=== PATIENT | male | born 1985 | race African-American/Black ===

== ENCOUNTER 2016-08-03 00:38 | Emergency (ER) | payer OTHER ==
[2016-08-03 01:10] VITALS: BP 120/66; PULSE 76; TEMP 97.8; BMI 24.7
--- NOTE | 2016-08-03 01:54 | PDOC ---
History of Present Illness - General Chief Complaint: Cold Symptoms Stated Complaint: FEVER/CHILLS Time Seen by Provider: 08/03/16 01:05 History Source: Patient Exam Limitations: No Limitations - History of Present Illness Initial Comments: 08/03/16 02:58 30-year-old male with a history of HIV and asthma presents to the emergency department complaining of an intermittent nonproductive cough 6 hours without fever, chills, nausea/vomiting, rhinorrhea, facial pain, headache, dizziness, lightheadedness, neck pains, back pains, chest pain, shortness of breath, abdominal pains. Patient's CD4 count is 500 and viral load is undetectable times one week ago. Timing/Duration: reports: yesterday Severity: reports: mild Possible Cause: Yes: no prior episodes Modifying Factors: improves with: activity Past History - Past Medical History Allergies/Adverse Reactions: Allergies Allergy/AdvReac Type Severity Reaction Status Date / Time sulfamethoxazole Allergy Verified 08/03/16 01:02 [From Bactrim] trimethoprim [From Bactrim] Allergy Verified 08/03/16 01:02 Home Medications: Ambulatory Orders Azithromycin [Zithromax -] 250 mg PO UTDICT #6 tab 08/03/16 Norvir 0 mg DAILY 08/03/16 Prezista - 0 mg DAILY 08/03/16 Truvada - 0 mg DAILY 08/03/16 - Psycho/Social/Smoking Cessation Hx Suicidal Ideation: No Smoking History: Never smoked Have you smoked in the past 12 months: No Information on smoking cessation initiated: No Hx Alcohol Use: No Drug/Substance Use Hx: No Review of Systems - Review of Systems Able to Perform ROS?: Yes Comments:: 08/03/16 03:00 CONSTITUTIONAL: Absent: fever, chills, diaphoresis, generalized weakness, malaise, loss of appetite HEENT: Absent: rhinorrhea, nasal congestion, throat pain, throat swelling, difficulty swallowing, mouth swelling, ear pain, eye pain, visual Changes CARDIOVASCULAR: Absent: chest pain, loss of consciousness, palpitations, irregular heart rate, peripheral edema RESPIRATORY: Absent: cough, shortness of breath, dyspnea with exertion, orthopnea, wheezing, stridor, hemoptysis GASTROINTESTINAL: Absent: abdominal pain, abdominal distension, nausea, vomiting, diarrhea, constipation, melena, hematochezia GENITOURINARY: Absent: dysuria, frequency, urgency, hesitancy, hematuria, flank pain, genital pain MUSCULOSKELETAL: Absent: myalgia, arthralgia, joint swelling SKIN: Absent: rash, itching, pallor HEMATOLOGIC/IMMUNOLOGIC: Absent: easy bleeding, easy bruising, lymphadenopathy, frequent infections ENDOCRINE: Absent: unexplained weight gain, unexplained weight loss, heat intolerance, cold intolerance NEUROLOGIC: Absent: headache, focal weakness or paresthesias, dizziness, unsteady gait, seizure, mental status changes, bladder or bowel incontinence PSYCHIATRIC: Absent: anxiety, depression, suicidal or homicidal ideation, hallucinations. Is the patient limited Portuguese proficient: No *Physical Exam - Vital Signs Last Vital Signs Temp Pulse Resp BP Pulse Ox 97.8 F 76 18 120/66 98 08/03/16 01:02 08/03/16 01:02 08/03/16 01:02 08/03/16 01:02 08/03/16 01:02 - Physical Exam Comments: 08/03/16 03:01 GENERAL: Well developed, well nourished. Awake and alert. No acute distress. HEENT: Normocephalic, atraumatic. PERRLA, EOMI. No conjunctival pallor. Sclera are non- icteric. Moist mucous membranes. Oropharynx is clear. NECK: Supple. Full ROM. No JVD. Carotid pulses 2+ and symmetric, without bruits. No thyromegaly. No lymphadenopathy. CARDIOVASCULAR: Regular rate and rhythm. No murmurs, rubs, or gallops. Distal pulses are 2+ and symmetric. PULMONARY: No evidence of respiratory distress. Lungs clear to auscultation bilaterally. No wheezing, rales or rhonchi. ABDOMINAL: Soft. Non-tender. Non-distended. No rebound or guarding. No organomegaly. Normoactive bowel sounds. MUSCULOSKELETAL Normal range of motion at all joints. No bony deformities or tenderness. No CVA tenderness. EXTREMITIES: No cyanosis. No clubbing. No edema. No calf tenderness. SKIN: Warm and dry. Normal capillary refill. No rashes. No jaundice. NEUROLOGICAL: Alert, awake, appropriate. Cranial nerves 2-12 intact. No deficits to light touch and temperature in face, upper extremities and lower extremities. No motor deficits in the in face, upper extremities and lower extremities. Normoreflexic in the upper and lower extremities. Normal speech. Toes are down- going bilaterally. Gait is normal without ataxia. PSYCHIATRIC: Cooperative. Good eye contact. Appropriate mood and affect. *DC/Admit/Observation/Transfer Diagnosis at time of Disposition: Bronchitis - Discharge Dispostion Disposition: HOME Admit: No - Prescriptions Prescriptions: Azithromycin [Zithromax -] 250 mg PO UTDICT #6 tab - Patient Instructions Printed Discharge Instructions: DI for Viral Upper Respiratory Infection -- Adult Additional Instructions: Rest Increase fluids Tylenol/motrin as needed for pain/fever Return to the ER for severe/persistent/worsening symptoms
== END 2016-08-03 03:24 | disposition home or self-care (01) ==
LOC: JER 00:38
DX: J40 Bronchitis, not specified as acute or chronic (principal); Z21 Asymptomatic human immunodeficiency virus [HIV] infection status
CPT/HCPCS: 71020-TC; 99282-25

== ENCOUNTER 2016-11-12 16:59 | Inpatient (IN) | payer OTHER ==
[2016-11-12 17:07] VITALS: BP 106/57; PULSE 116; TEMP 101.3; BMI 23.3
[2016-11-12] MEDS ORDERED: ACETAMINOPHEN 650 MG/20.3 ML ORAL SOLUTION (CUPS) PO ONE (17:09)
[2016-11-12] MEDS ORDERED: SODIUM CHLORIDE 1,000 ML IV STA (17:16)
[2016-11-12] MEDS ORDERED: ACETAMINOPHEN 1000 MG/100 ML VIAL (NON FORMULARY) IVPB ONE (17:17)
[2016-11-12 17:55] LABS: BASOPHIL 0.4 % (0-2.0); EOSINOPHIL 0.1 % (0-4.5); MCH 26.7 pg (25.7-33.7); MCHC 33.4 g/dl (32.0-35.9); MEAN PLT VOLUME 7.1 fl (7.5-11.1); NEUTROPHILS 78.6 % (42.8-82.8); PLATELET COUNT 293 K/MM3 (134-434); RDW 20.4 % (11.9-15.9); WHITE BLOOD COUNT 10.3 K/mm3 (4.0-10.0)
--- NOTE | 2016-11-12 18:02 | PDOC ---
History of Present Illness - General Chief Complaint: SIRS, Suspected/Possible Stated Complaint: CELLUITIS Time Seen by Provider: 11/12/16 17:16 History Source: Patient Exam Limitations: No Limitations - History of Present Illness Initial Comments: 11/12/16 18:18 31-year-old male presents the emergency room with complaints of continual fever or chills and pain to bilateral knees with redness and swelling. Patient states is at [facility] yesterday where he was admitted for the above due to his history of HIV and K sarcoma but left AGAINST MEDICAL ADVICE since he felt the care was not adequate and he was being "ignored". Patient states is followed by ID specialist at [facility] and previously was followed by Dr. Wynne and Dr. Cobb. Patient currently denies chest pain, shortness of breath, headache, nausea or abdominal pain. Patient states CD4 is around 500 and viral loads are undetectable. Timing/Duration: constant Severity: moderate Associated Symptoms: reports: fever/chills, weakness Past History - Travel Traveled outside of the country in the last 30 days: No - Past Medical History Allergies/Adverse Reactions: Allergies Allergy/AdvReac Type Severity Reaction Status Date / Time sulfamethoxazole Allergy Verified 11/12/16 17:01 [From Bactrim] trimethoprim [From Bactrim] Allergy Verified 11/12/16 17:01 Home Medications: Ambulatory Orders Norvir 100 mg PO DAILY 08/03/16 Prezista - 800 mg PO DAILY 08/03/16 Truvada - 400 mg PO DAILY 08/03/16 - Suicide/Smoking/Psychosocial Hx Smoking History: Never smoked Have you smoked in the past 12 months: Yes Number of Cigarettes Smoked Daily: 10 Information on smoking cessation initiated: Yes Hx Alcohol Use: No Drug/Substance Use Hx: Yes (tobi) Patient Lives Alone: Yes Lives with/in: lives alone Review of Systems - Review of Systems Able to Perform ROS?: Yes Constitutional: Yes: Fever, Weakness HEENTM: No: Symptoms Reported Respiratory: No: Symptoms reported Cardiac (ROS): No: Symptoms Reported ABD/GI: No: Symptoms Reported : No: Symptoms Reported Musculoskeletal: Yes: Joint Pain, Joint Swelling Integumentary: Yes: Erythema Neurological: No: Symptoms reported Hematologic/Lymphatic: Yes: See HPI *Physical Exam - Vital Signs Last Vital Signs Temp Pulse Resp BP Pulse Ox 101.3 F H 116 H 18 106/57 100 11/12/16 17:02 11/12/16 17:02 11/12/16 17:02 11/12/16 17:02 11/12/16 17:02 - Physical Exam General Appearance: Yes: Appropriately Dressed, Thin. No: Apparent Distress Neck: positive: Supple Respiratory/Chest: positive: Lungs Clear, Normal Breath Sounds. negative: Respiratory Distress, Accessory Muscle Use Cardiovascular: positive: Regular Rhythm, Tachycardia. negative: Murmur Gastrointestinal/Abdominal: positive: Soft. negative: Tenderness Extremity: positive: Tender (to anterior patellas), Swelling (with erythema to bilateral patella . no palpable mass or fluctuance). negative: Normal Range of Motion (unable to flex) Integumentary: positive: Warm, Moist Neurologic: negative: Normal Mood/Affect (anxious) Heart Score/ECG Review - ECG Intrepretation Rhythm: Regular Rhythm (sinus tachycardia 108. No ST elevation or depression noted) ED Treatment Course - LABORATORY CBC & Chemistry Diagram: 11/12/16 17:48 11/12/16 17:48 - RADIOLOGY Radiology Studies Ordered: Category Date Time Status CHEST X-RAY PORTABLE* [RAD] Stat Radiology 11/12/16 17:17 Ordered - Medications Given in the ED: ED Medications Discontinued Medications Generic Name Dose Route Start Last Admin Trade Name Jaisonq PRN Reason Stop Dose Admin Acetaminophen 975 mg 11/12/16 17:09 11/12/16 17:09 Tylenol Oral Solution - PO 11/12/16 17:10 975 mg NOW ONE Administration Medical Decision Making - Medical Decision Making 11/12/16 18:33 Patient here for evaluation of red swollen and tender patellas over the past 2 days which he was admitted at [facility] for but left AMA last evening when he felt ignored. Patient arrives here tachycardic febrile and with erythematous edematous tender patellas. Septic workup initiated along with Vanco and Zosyn administration. Consultation was placed for infectious disease Dr. Wynne. Patient to be admitted to hospitalist. 11/12/16 18:35 Laboratory Tests 11/12/16 11/12/16 17:48 17:48 WBC 10.3 H Hgb 11.2 L Hct 33.6 L RDW 20.4 H MPV 7.1 L PT with INR 14.40 H INR 1.30 H *DC/Admit/Observation/Transfer Diagnosis at time of Disposition: Sepsis Qualifiers: Sepsis type: sepsis due to unspecified organism Qualified Code(s): A41.9 - Sepsis, unspecified organism Cellulitis Qualifiers: Site of cellulitis: extremity Site of cellulitis of extremity: lower extremity Laterality: unspecified laterality Qualified Code(s): L03.119 - Cellulitis of unspecified part of limb - Discharge Dispostion Admit: Yes
[2016-11-12] MEDS ORDERED: ACETAMINOPHEN INJECTION 100 ML IVPB ONE (18:03)
[2016-11-12 18:12] LABS: INR 1.3 (0.82-1.09); PROTHROMBIN TIME (PATIENT) 14.4 SEC (9.98-11.88)
[2016-11-12] MEDS ORDERED: VANCOMYCIN 1,000 MG in DEXTROSE 5%-WATER - 250 ML IVPB ONE (18:17)
[2016-11-12] MEDS ORDERED: PIPERACILLIN/TAZOB 3.375 GM 50 ML IVPB ONE (18:27)
[2016-11-12] MEDS ORDERED: VANCOMYCIN 1 GRAM (PRE-DOCKED) 250 ML IVPB ONE (18:27)
[2016-11-12] MEDS ORDERED: PIPERACILLIN/TAZOB 3.375 GM 3.375 GM in DEXTROSE 5%-WATER - 50 ML IVPB SCH (18:30)
[2016-11-12 18:43] LABS: ALBUMIN 3.2 g/dl (3.4-5.0); ALK PHOS 73 U/L (45-117); ANION GAP 9 (8-16); BILIRUBIN,TOTAL 0.7 mg/dL (0.2-1.0); CO2 31 mmol/L (21-32); CPK 167 IU/L (39-308); CREATININE 1.1 mg/dL (0.7-1.3); GLUCOSE,RANDOM 91 mg/dL (74-106); SGOT/AST 18 U/L (15-37); SGPT/ALT 20 U/L (12-78); TOT PROT 8.2 g/dl (6.4-8.2)
[2016-11-12 18:45] LABS: TROPONIN I < 0.02 ng/ml (0.00-0.05)
[2016-11-12] MEDS ORDERED: PIPERACILLIN/TAZOB 3.375 GM 3.375 GM in DEXTROSE 5%-WATER - 50 ML IVPB ONE (18:58)
[2016-11-12 19:02] LABS: VENOUS PH 7.4 (7.32-7.42)
[2016-11-12 19:03] LABS: VENOUS BLOOD GAS HCO3 29.2 meq/L (19-25)
--- NOTE | 2016-11-12 19:23 | PN ---
Teaching Attending Note Name of Resident: Raffy العلي ATTENDING PHYSICIAN STATEMENT I saw and evaluated the patient. I reviewed the resident's note and discussed the case with the resident. I agree with the resident's findings and plan as documented. SUBJECTIVE: 31 yo M with pmhx of HIV/AIDS Kaposi's Sarcomaa who had presented to [facility] yesterday with pain to bilateral knees with associated edema/ erythema. States his CD4 is around 500 and undectable VL. OBJECTIVE: Physical: VS: Vital Signs Period Temp Pulse Resp BP Sys/Richter Pulse Ox Last 24 Hr 101.3 F 116 18 106/57 100 GEN: HEENT: CARD: RESP: ABD: EXT: CBCD WBC 10.3 K/mm3 (4.0-10.0) H 11/12/16 17:48 RBC 4.20 M/mm3 (4.00-5.60) 11/12/16 17:48 Hgb 11.2 GM/dL (11.7-16.9) L 11/12/16 17:48 Hct 33.6 % (35.4-49) L 11/12/16 17:48 MCV 80.0 fl (80-96) 11/12/16 17:48 MCHC 33.4 g/dl (32.0-35.9) 11/12/16 17:48 RDW 20.4 % (11.9-15.9) H 11/12/16 17:48 Plt Count 293 K/MM3 (134-434) 11/12/16 17:48 MPV 7.1 fl (7.5-11.1) L 11/12/16 17:48 CMP Sodium 135 mmol/L (136-145) L 11/12/16 17:48 Potassium 3.8 mmol/L (3.5-5.1) 11/12/16 17:48 Chloride 95 mmol/L (98-107) L 11/12/16 17:48 Carbon Dioxide 31 mmol/L (21-32) 11/12/16 17:48 Anion Gap 9 (8-16) 11/12/16 17:48 BUN 9 mg/dL (7-18) 11/12/16 17:48 Creatinine 1.1 mg/dL (0.7-1.3) 11/12/16 17:48 Creat Clearance w eGFR > 60 (>60) 11/12/16 17:48 Random Glucose 91 mg/dL (74-106) 11/12/16 17:48 Calcium 9.0 mg/dL (8.5-10.1) 11/12/16 17:48 Total Bilirubin 0.7 mg/dL (0.2-1.0) 11/12/16 17:48 AST 18 U/L (15-37) 11/12/16 17:48 ALT 20 U/L (12-78) 11/12/16 17:48 Alkaline Phosphatase 73 U/L (45-117) 11/12/16 17:48 Total Protein 8.2 g/dl (6.4-8.2) 11/12/16 17:48 Albumin 3.2 g/dl (3.4-5.0) L 11/12/16 17:48 CARDIAC ENZYMES Creatine Kinase 167 IU/L (39-308) 11/12/16 17:48 Troponin I < 0.02 ng/ml (0.00-0.05) 11/12/16 17:48 Knee Xray: UA- PENDING ASSESSMENT AND PLAN: 31 yo M with pmhx of HIV and KS who presents with bilateral knee pain found to be septic 1.) Sepsis - Possibly Septic Arthritis - Seals Cx - Knee Xray Bilateral - Vanco/Zosyn - ID consult - Repeat LA - IVF - FU ESR/CRP 2.) HIV - Chk. CD4 and VL - C/W HARRT 3.) Dvt Ppx - Heparin 5000 q8
--- NOTE | 2016-11-12 22:16 | HOSP ---
Physical Examination Vital Signs: Vital Signs Temperature 101.3 F H 11/12/16 17:02 Pulse Rate 116 H 11/12/16 17:02 Respiratory Rate 18 11/12/16 17:02 Blood Pressure 106/57 11/12/16 17:02 O2 Sat by Pulse Oximetry (%) 100 11/12/16 17:02 Hospitalist Encounter Assessment: Was signed out by the day team EARL regarding patient Hai Wilson for an admission. Went to see the patient in the ED, but patient had eloped before we saw the patient. Visit type - Emergency Visit Emergency Visit: Yes ED Registration Date: 11/12/16 Care time: The patient presented to the Emergency Department on the above date and was hospitalized for further evaluation of their emergent condition. - New Patient This patient is new to me today: Yes Date on this admission: 11/12/16 - Critical Care Critical Care patient: No
[2016-11-13] MEDS ORDERED: SODIUM CHLORIDE 1,000 ML IV SCH (00:30)
--- NOTE | 2016-11-13 01:02 | HP ---
CHIEF COMPLAINT: Bilateral LE Pain HISTORY OF PRESENT ILLNESS: Mr. Wilson is a 31yo M with a PMHx of HIV and Kaposi Sarcoma (last stated viral load was in 1,000s w/ CD4 451 appx 1 month ago) who presented with BLLE pain. States that pain started in R inner thigh, pressure like, intermittent, painful w/ movement. He also noticed redness in the area, which spread to both legs, and down to his calves. No known trauma to the area, no tick bites. Endorses fevers, chills. No sick contacts. Erythema is present on overlying L knee, and patient has difficulty standing up, but denies knee joint tenderness. Denies erythema + tenderness in other joints. Pt is intermittently not compliant w/ HAART regimen, and is sexually active with 1 partner but when asked about monogamy, he states he "is human". Denies CP, SOB, abdominal pain. As per ED staff note: "Pt states that he was calling for assistance to the bathroom so he could have a BM, and he states the help "wasn't quick enough" so he urinated and defecated on the floor of his room, then was confrontational with staff members. He became angry and tore his IV from his right hand, and began to dress stating he was leaving. He was eventually left the facility ambulating well being escorted by security." The patient returned to ER, stating he was "embarrassed" by his actions. His sister has told him that his personality has changed recently. ER course was notable for: (1) Hemodynamically stable. +SIRS: Tmax 101.3, HR 116, WBC 10.3 (2) Vanc + Zosyn (3) PO Tylenol Recent Travel: Denies PAST MEDICAL HISTORY: HIV, Kaposi Sarcoma PAST SURGICAL HISTORY: Denies Social History: Smokin/2PPD smoker Alcohol: Denies Drugs: Daily marijuana smoker Family History: Noncontributory Allergies sulfamethoxazole [From Bactrim] Allergy (Verified 11/12/16 21:09) trimethoprim [From Bactrim] Allergy (Verified 11/12/16 21:09) HOME MEDICATIONS: Home Medications Medication Instructions Recorded Norvir 100 mg PO DAILY 08/03/16 Prezista - 800 mg PO DAILY 08/03/16 Truvada - 400 mg PO DAILY 08/03/16 REVIEW OF SYSTEMS CONSTITUTIONAL: Absent: diaphoresis, generalized weakness, malaise, loss of appetite, weight change Present: fever, chills HEENT: Absent: rhinorrhea, nasal congestion, throat pain, throat swelling, difficulty swallowing, mouth swelling, ear pain, eye pain, visual changes CARDIOVASCULAR: Absent: chest pain, syncope, palpitations, irregular heart rate, lightheadedness , peripheral edema RESPIRATORY: Absent: cough, shortness of breath, dyspnea with exertion, orthopnea, wheezing, stridor, hemoptysis GASTROINTESTINAL: Absent: abdominal pain, abdominal distension, nausea, vomiting, diarrhea, constipation, melena, hematochezia GENITOURINARY: Absent: dysuria, frequency, urgency, hesitancy, hematuria, flank pain, genital pain MUSCULOSKELETAL: Absent: myalgia, arthralgia, joint swelling, back pain, neck pain SKIN: Absent: rash, itching, pallor HEMATOLOGIC/IMMUNOLOGIC: Absent: easy bleeding, easy bruising, lymphadenopathy, frequent infections ENDOCRINE: Absent: unexplained weight gain, unexplained weight loss, heat intolerance, cold intolerance NEUROLOGIC: Absent: headache, focal weakness or paresthesias, dizziness, unsteady gait, seizure, mental status changes, bladder or bowel incontinence PSYCHIATRIC: Absent: anxiety, depression, suicidal or homicidal ideation, hallucinations. Vital Signs Temperature 101.3 F H 11/12/16 17:02 Pulse Rate 116 H 11/12/16 17:02 Respiratory Rate 18 11/12/16 17:02 Blood Pressure 106/57 11/12/16 17:02 O2 Sat by Pulse Oximetry (%) 100 11/12/16 17:02 PHYSICAL EXAMINATION GEN: AAOx3, NAD, speaking in coherent sentences, mildly eccentric, at times laughing inappropriately, unsure of baseline HEENT: PERRLA, EOMi, No cervical LAD CV: S1, S2, RRR, No murmurs LUNG: CTABL ABD: Soft, NT, ND, normoactive BS MSK: Diffuse discolored plaques on shins bilaterally; One large discolored plaque on L inner thigh, erythema in bilateral thighs, extends to skin overlying L knee, to posterior calf, +warmth, -edema, no TTP to joints NEURO: CN 2-12 intact, no sensation deficits, MSK 5/5 in upper extremities; 3/5 in lower extremities due to pain, reflexes 2+ in upper extremities. Laboratory Last Values WBC 10.3 K/mm3 (4.0-10.0) H 11/12/16 17:48 RBC 4.20 M/mm3 (4.00-5.60) 11/12/16 17:48 Hgb 11.2 GM/dL (11.7-16.9) L 11/12/16 17:48 Hct 33.6 % (35.4-49) L 11/12/16 17:48 MCV 80.0 fl (80-96) 11/12/16 17:48 MCH 26.7 pg (25.7-33.7) 11/12/16 17:48 MCHC 33.4 g/dl (32.0-35.9) 11/12/16 17:48 RDW 20.4 % (11.9-15.9) H 11/12/16 17:48 Plt Count 293 K/MM3 (134-434) 11/12/16 17:48 MPV 7.1 fl (7.5-11.1) L 11/12/16 17:48 Neutrophils % 78.6 % (42.8-82.8) 11/12/16 17:48 Lymphocytes % 15.2 % (8-40) 11/12/16 17:48 Monocytes % 5.7 % (3.8-10.2) 11/12/16 17:48 Eosinophils % 0.1 % (0-4.5) 11/12/16 17:48 Basophils % 0.4 % (0-2.0) 11/12/16 17:48 PT with INR 14.40 SEC (9.98-11.88) H 11/12/16 17:48 INR 1.30 (0.82-1.09) H 11/12/16 17:48 VBG pH 7.40 (7.32-7.42) 11/12/16 18:55 POC VBG pCO2 47.6 mmHg (38-52) 11/12/16 18:55 POC VBG pO2 29.1 mmHg (28-48) 11/12/16 18:55 Mixed VBG HCO3 29.2 meq/L (19-25) H 11/12/16 18:55 Sodium 135 mmol/L (136-145) L 11/12/16 17:48 Potassium 3.8 mmol/L (3.5-5.1) 11/12/16 17:48 Chloride 95 mmol/L (98-107) L 11/12/16 17:48 Carbon Dioxide 31 mmol/L (21-32) 11/12/16 17:48 Anion Gap 9 (8-16) 11/12/16 17:48 BUN 9 mg/dL (7-18) 11/12/16 17:48 Creatinine 1.1 mg/dL (0.7-1.3) 11/12/16 17:48 Creat Clearance w eGFR > 60 (>60) 11/12/16 17:48 Random Glucose 91 mg/dL (74-106) 11/12/16 17:48 Lactic Acid 3.0 mmol/L (0.4-2.0) H* 11/12/16 17:48 Calcium 9.0 mg/dL (8.5-10.1) 11/12/16 17:48 Total Bilirubin 0.7 mg/dL (0.2-1.0) 11/12/16 17:48 AST 18 U/L (15-37) 11/12/16 17:48 ALT 20 U/L (12-78) 11/12/16 17:48 Alkaline Phosphatase 73 U/L (45-117) 11/12/16 17:48 Creatine Kinase 167 IU/L (39-308) 11/12/16 17:48 Creatine Kinase Index 0.5 % (0.0-5.0) 11/12/16 17:48 CK-MB (CK-2) < 1.000 ng/mL (0.5-3.6) 11/12/16 17:48 Troponin I < 0.02 ng/ml (0.00-0.05) 11/12/16 17:48 Total Protein 8.2 g/dl (6.4-8.2) 11/12/16 17:48 Albumin 3.2 g/dl (3.4-5.0) L 11/12/16 17:48 Blood Type O POSITIVE 11/12/16 17:48 Antibody Screen Negative 11/12/16 17:48 Home Medication List Medication Instructions Recorded Confirmed Type Norvir 100 mg PO DAILY 08/03/16 11/13/16 History Prezista - 800 mg PO DAILY 08/03/16 11/13/16 History Truvada - 400 mg PO DAILY 08/03/16 11/13/16 History Active Medications Generic Name Dose Route Start Last Admin Trade Name Cheryl PRN Reason Stop Dose Admin Acetaminophen 650 mg 11/13/16 01:14 Tylenol - PO Q4H PRN FEVER OR PAIN Heparin Sodium (Porcine) 5,000 unit 11/13/16 06:00 Heparin - SQ TID ROBERTH Sodium Chloride 1,000 mls @ 100 mls/hr 11/13/16 00:30 Normal Saline - IV ASDIR ROBERTH Vancomycin HCl 1,000 mg/ 250 mls @ 250 mls/hr 11/13/16 01:08 Dextrose IVPB 11/13/16 02:07 ONCE ONE Protocol Piperacillin Sod/Tazobactam 50 mls @ 100 mls/hr 11/13/16 09:00 Sod 3.375 gm/ Dextrose IVPB 11/13/16 09:29 ONCE ONE Protocol ASSESSMENT/PLAN: Pt is a 31yo M with PMHx of HIV noncompliant w/ HAART who presents w/ BLLE pain + erythema admitted for severe sepsis secondary to cellulitis. # Severe Sepsis - secondary to likely BLLE cellulitis, r/o septic arthritis - Received Vanc + Zosyn in ED, ID to continue - Blood cx, Urine cx - Lactic acid 3.0 --> continue to trend - IVNS @ 100cc/hr - Knee XR to check for joint space tissue swelling - BLLE duplex - PO Tylenol 650 Q4 PRN for pain - ID Consult # ?AMS - baseline vs HIV encephalopathy - Contact Sister Viola for baseline mental status (number in chart) - RPR - UTox - MRI w/ and w/o contrast # HIV - intermittently compliant w/ meds - CD4 and Viral load - Continue HAART therapy - Heme/Onc consult # FEN - Fluids: IVNS @ 100cc/hr due to lactic acid - Electrolytes: Mild hyponatremia, should improve w/ IVNS - Nutrition: Regular Diet # Prophylaxis - DVT: Moderate risk - Heparin 5,000u SQ TID - GI: Not indicated - Deconditioning: PT orderd # Dispo - Admit to Med/Surg Case d/w Dr. Hogan and Dr. Emilio Kong MD - PGY1 Internal Medicine
[2016-11-13] MEDS ORDERED: VANCOMYCIN 1,000 MG in DEXTROSE 5%-WATER - 250 ML IVPB ONE (01:08)
[2016-11-13] MEDS ORDERED: ACETAMINOPHEN 325 MG TABLET (FP) PO PRN (01:14)
--- NOTE | 2016-11-13 01:25 | MSN ---
Admitting History and Physical - Admission Chief Complaint: bilateral lower extremity pain History of Present Illness: Patient is a 31 year old male with past medical history of HIV (CD4 451 and viral load of 1000 as per patient), Kaposi Sarcoma (last chemo treatment in 2010 ) presented to the ED with bilateral lower extremity pain. Patient stated about 3 days ago, he felt some pain and erythema in both inner thighs. Over the past few days, the pain and erythema spread downward to the posterior aspect of both calves and to his left knee. Patient stated that there was no known trauma to the site. Stated that there is heavy pressure, tenderness, erythema and warmth at the sites, with sharp 10/10 pain while standing and 0/10 pain while laying down. Stated that he has been feeling feverish, having chills and sweats. Patient is not compliant with HAART medications (skips 2-3 days a week) and sometimes has unprotected sex with his partner (may have other partners), although he does see his physician every 3-6 months to follow up on his disease. He has had treatments for chlamydia and syphilis in the past. Denies headaches, lightheadedness, chest pain, shortness of breath, abdominal pain, N/V/C/D, urinary symptoms, changes in genitalia. History Source: Patient Limitations to Obtaining History: No Limitations - Past Medical History Infectious Disease: Yes: HIV, Other (History of Kaposi Sarcoma Syphilis ( treated this year) Chlamydia (treated in 2005)) - Smoking History Smoking history: Current some day smoker Have you smoked in the past 12 months: Yes Aproximately how many cigarettes per day: 10 - Alcohol/Substance Use Hx Alcohol Use: No History of Substance Use: reports: Marijuana - Social History History of Recent Travel: No Other Social History: denies sick contacts Home Medications - Allergies Allergies/Adverse Reactions: Allergies Allergy/AdvReac Type Severity Reaction Status Date / Time sulfamethoxazole Allergy Verified 11/12/16 21:09 [From Bactrim] trimethoprim [From Bactrim] Allergy Verified 11/12/16 21:09 - Home Medications Home Medications: Ambulatory Orders Norvir 100 mg PO DAILY 08/03/16 Prezista - 800 mg PO DAILY 08/03/16 Truvada - 400 mg PO DAILY 08/03/16 Family Disease History - Family Disease History Family History: Unremarkable Review of Systems Findings/Remarks: patient stated that he feels feverish, has chills and sweats Denied weight loss, headaches, lightheadedness, chest pain, SOB, abdominal pain , N/V/C/D, urinary symptoms Physical Examination Vital Signs: Vital Signs Temperature 101.3 F H 11/12/16 17:02 Pulse Rate 116 H 11/12/16 17:02 Respiratory Rate 18 11/12/16 17:02 Blood Pressure 106/57 11/12/16 17:02 O2 Sat by Pulse Oximetry (%) 100 11/12/16 17:02 Constitutional: Yes: Well Nourished, No Distress, Calm Eyes: Yes: WNL, Conjunctiva Clear, EOM Intact Cardiovascular: Yes: Tachycardia, S1, S2 Respiratory: Yes: WNL, Regular, CTA Bilaterally Gastrointestinal: Yes: WNL, Normal Bowel Sounds Musculoskeletal: Yes: Joint Swelling (left knee swollen and erythematous, no pain to palpation) Extremities: Yes: Erythema, Other (both lower extremities were warm to the touch , erythematous from the inner thighs to the posterior aspects of the calves There was no tenderness to palpation) Integumentary: Yes: Other (patient has Kaposi sarcoma dark plaques, about quarter sized collations on the anterior shins and upper thighs bilaterally) Imaging - Results Chest X-ray: Pending (bilateral knee x-ray) X-ray: Pending Ultrasound: Pending (bilateral led duplex) MRI: Pending (MRI head with and without contrast) Assessment/Plan Patient is a 31 year old male with past medical history of HIV (CD4 count 451 and viral count 1000 as per patient), Kaposi sarcoma (last chemo treatment 2010 ) who presented to the ED with bilateral lower extremity pain. He was admitted for severe sepsis secondary to cellulitis vs. septic arthritis. #severe sepsis secondary to cellulitis vs septic arthritis -temp 101.3, HR 116, wbc 10.3, lactic acid 3.0 -trend lactic acid -f/u blood cx, urine cx -IV NS 1000ml ASDIR -started on vancomycin 1000mg IVPB and zosyn 3.375mg IVPB -ID consulted -- Dr. Wynne -f/u BL lower leg duplex, BL knee x-ray, chest x-ray -acetaminophen 650mg Q4H PRN for pain/fever #HIV -CD4 count pending -viral load pending -continue medications -Hem/onc consult --[facility] #Potential change in behavior -patient stated his sister noticed he has been secretive and withdrawn, unlike his normal behavior -sister's phone number [phone] -patient was removed from the ED earlier today for defecating and urinating on the floor, exposing himself to other patients -MRI head with and without contrast ordered #FEN -Fluids: 1000ml IV NS ASDIR -Electrolytes: WNL -Nutrition: regular diet #Prophylaxis -DVT: heparin 5000 units TID -GI:not needed -deconditioning: early ambulation, PT #Dispo -admit to med/surg for severe sepsis
[2016-11-13] MEDS ORDERED: HEPARIN NA (PORCINE) 5,000 UNITS/ML 1ML VIAL SQ SCH (06:00)
[2016-11-13 08:32] LABS: MCH 26.8 pg (25.7-33.7); MCHC 33.7 g/dl (32.0-35.9); MEAN CELL VOLUME 79.6 fl (80-96); MEAN PLT VOLUME 6.7 fl (7.5-11.1); PLATELET COUNT 283 K/MM3 (134-434); RDW 20.8 % (11.9-15.9); WHITE BLOOD COUNT 12.4 K/mm3 (4.0-10.0)
[2016-11-13] MEDS ORDERED: PIPERACILLIN/TAZOB 3.375 GM 3.375 GM in DEXTROSE 5%-WATER - 50 ML IVPB ONE (09:00)
[2016-11-13 09:25] LABS: ANION GAP 6 (8-16); CO2 29 mmol/L (21-32); CREATININE 0.8 mg/dL (0.7-1.3); GLUCOSE,RANDOM 95 mg/dL (74-106)
--- NOTE | 2016-11-13 11:30 | EKG ---
Test Reason : Blood Pressure : / mmHG Vent. Rate : 108 BPM Atrial Rate : 108 BPM P-R Int : 138 ms QRS Dur : 086 ms QT Int : 322 ms P-R-T Axes : 026 039 050 degrees QTc Int : 431 ms SINUS TACHYCARDIA OTHERWISE NORMAL ECG WHEN COMPARED WITH ECG OF 29-JUL-2008 14:15, T WAVE AMPLITUDE HAS DECREASED IN ANTERIOR LEADS Confirmed by SOLOMON CARRION MD ([id number]) on 11/13/2016 11:29:57 AM Referred By: Confirmed By:SOLOMON CARRION MD
== END 2016-11-12 19:39 | disposition left against medical advice (07) | DRG 720 ==
LOC: JER 16:59 → JERBED 18:38
PROVIDERS: ADMIT Internal Medicine; ATTEND Internal Medicine
DX: A41.9 Sepsis, unspecified organism (principal); R65.20 Severe sepsis without septic shock; C46.9 Kaposi's sarcoma, unspecified; L03.116 Cellulitis of left lower limb; L03.115 Cellulitis of right lower limb; Z21 Asymptomatic human immunodeficiency virus [HIV] infection status; Z91.14 Patient's other noncompliance with medication regimen
CPT/HCPCS: 36415; 71010-TC; 80048; 80053; 82553; 82803; 83605; 84484; 85025; 85027; 85610; 86359; 86360; 86593; 86780; 86850; 86900; 86901; 87040; 93005; 93010; 93970-TC; 99283-25

== ENCOUNTER 2016-11-12 21:01 | Inpatient (IN) | payer OTHER ==
[2016-11-12 21:12] VITALS: BMI 22.4
--- NOTE | 2016-11-12 23:11 | PDOC ---
History of Present Illness - General Chief Complaint: Pain Stated Complaint: PAIN Time Seen by Provider: 11/12/16 22:20 History Source: Patient Exam Limitations: No Limitations - History of Present Illness Initial Comments: 11/12/16 23:05 Please review earlier note. Patient has PmHx: HIV, Kaposi Sarcoma returns to ED c/o worsen bilateral lower extremity pain. Patient states [facility] [address], but was upset at the care he was receiving and walked out. Patient explained to provider, experiencing the same attitude from staff here when he request assistance to bathroom. Patient states he had a BM and voided on ER floor. Patient was escorted out of the facility after being admitted inpatient. He returns wanting readmission. Denies any other complaints at this time, but is requesting pain medication. Past History - Travel Traveled outside of the country in the last 30 days: No Close contact w/someone who was outside of country & ill: No - Past Medical History Allergies/Adverse Reactions: Allergies Allergy/AdvReac Type Severity Reaction Status Date / Time sulfamethoxazole Allergy Verified 11/12/16 21:09 [From Bactrim] trimethoprim [From Bactrim] Allergy Verified 11/12/16 21:09 Home Medications: Ambulatory Orders Norvir 100 mg PO DAILY 08/03/16 Prezista - 800 mg PO DAILY 08/03/16 Truvada - 400 mg PO DAILY 08/03/16 - Suicide/Smoking/Psychosocial Hx Smoking History: Current every day smoker Have you smoked in the past 12 months: Yes Number of Cigarettes Smoked Daily: 10 Information on smoking cessation initiated: No Hx Alcohol Use: No Drug/Substance Use Hx: No Substance Use Type: Marijuana Review of Systems - Review of Systems Musculoskeletal: Yes: Muscle Pain, Other (Posterior leg swelling.) Integumentary: Yes: Erythema, Other (Kaposi Sarcoma) All Other Systems: Reviewed and Negative *Physical Exam - Vital Signs Last Vital Signs Temp Pulse Resp BP Pulse Ox 98.8 F 93 H 18 126/66 98 11/12/16 21:09 11/12/16 21:09 11/12/16 21:09 11/12/16 21:09 11/12/16 21:09 - Physical Exam General Appearance: Yes: Nourished, Appropriately Dressed, Apparent Distress, Moderate Distress. No: Mild Distress, Severe Distress Neck: positive: Trachea midline, Supple. negative: Lymphadenopathy (R), Lymphadenopathy (L) Respiratory/Chest: positive: Lungs Clear, Normal Breath Sounds. negative: Chest Tender, Respiratory Distress, Accessory Muscle Use, Labored Respiration, Rapid RR Cardiovascular: positive: Regular Rhythm, Regular Rate Lymphatic: negative: Adenopathy Musculoskeletal: positive: Normal Inspection. negative: CVA Tenderness, Decreased Range of Motion Extremity: positive: Normal Capillary Refill, Tender (Bilateral Leg Tenderness) , Swelling, Calf Tenderness, Erythema, Inflammation. negative: Normal Inspection, Normal Range of Motion Integumentary: positive: Normal Color, Dry, Warm, Rash (Kaposi Sarcoma) Neurologic: positive: industrial automation specialist II-XII NML intact, Fully Oriented, Alert, Normal Mood/ Affect, Normal Response, Motor Strength 5/5 *DC/Admit/Observation/Transfer Diagnosis at time of Disposition: Cellulitis Qualifiers: Site of cellulitis: extremity Site of cellulitis of extremity: lower extremity Laterality: unspecified laterality Qualified Code(s): L03.119 - Cellulitis of unspecified part of limb - Discharge Dispostion Condition at time of disposition: Fair Admit: Yes
[2016-11-12] MEDS ORDERED: HYDROmorphone HCL CARPU-JECT 1 MG/1 ML DISP.SYRIN IVPUSH ONE (23:23)
[2016-11-12] MEDS ORDERED: SODIUM CHLORIDE 500 ML IV STA (23:23)
--- NOTE | 2016-11-12 23:42 | PN ---
Teaching Attending Note Name of Resident: Alec Kong ATTENDING PHYSICIAN STATEMENT I saw and evaluated the patient. I reviewed the resident's note and discussed the case with the resident. I agree with the resident's findings and plan as documented. SUBJECTIVE: 31 yo M with pmhx of HIV/AIDS KS, who presents after eloping this afternoon. Pt. came in with bilateral knee swellin and redness, he was given Vanco/Zosyn earlier in ED. He left and came back. He was also at [facility] where he was admitted yesterday for Cellulitis, but left AMA. Pt. states his L. knee erythema and edema had been going on a week and the right leg is also erythmatous. States he follows at [facility] for ID and is taking HAART. OF note: Prior to leaving hospital this afternoon pt. defecated and urinated on the floor and exposed himself to his roomate. OBJECTIVE: Physical: VS: Vital Signs Period Temp Pulse Resp BP Sys/Richter Pulse Ox Last 24 Hr 98.8 F 93 18 126/66 98 GEN: NAD, AAoX3, Resting in bed HEENT: NCAT, PERRL, Throat without erythema or exudates, CARD: RRR S1, S2 RESP: CTAB ABD: BSX4, NTD to palpatiob EXT: L Knee erythmatous and edematous, and tender to palpation, R. Knee erythmatous, Pulses intact, Kaposis lesions on bilateral extremities LABS: WBC 10.3 H&H 11.2/33 Plt: 293 MCV 80 NA 135 CL 95 BUN 9/CR 1.1 Glucose 91 Trop 0.02 LA 3.0 CXR- No acute process ASSESSMENT AND PLAN: 31 yo M with pmhx of HIV/AIDS KS who presents with severe sepsis 1.) Severe sepsis - Most likely due to cellulitis/ro septic arthritis - Knee Xrays bilateral - Trend LA - GATES Cx, including UA/Ucx - Vanco/Zosyn - ID consult - IVF - Tylenol prn fever 2.) HIV/AIDS - CD4 and VL - ID consult - C/W HAART 3.) AMS/? Disinhibition - DDx: Encephalopathy/PML/lesion/infection - FU CD4/VL - If low may need MRI brain and neuro consult - IF organic davey negative consider psych. consult 4.) Normocytic Anemia - Mild Monitor 5.) LLE edema/RLE edema - Duplex Bilateral LE 6.) Kaposis Sarcoma - Onc. Consult 7.) Dvt Ppx - Low Risk - Heparin [address] in Med-Sx
--- NOTE | 2016-11-12 23:43 | PDOC ---
*Physical Exam - Vital Signs Last Vital Signs Temp Pulse Resp BP Pulse Ox 98.8 F 93 H 18 126/66 98 11/12/16 21:09 11/12/16 21:09 11/12/16 21:09 11/12/16 21:09 11/12/16 21:09 ED Treatment Course - LABORATORY CBC & Chemistry Diagram: 11/13/16 06:50 11/13/16 06:50 Medical Decision Making - Medical Decision Making 11/12/16 23:42 agree with care from DIDI Charlse *DC/Admit/Observation/Transfer Diagnosis at time of Disposition: Cellulitis
[2016-11-12] MEDS ORDERED: HYDROmorphone HCL CARPU-JECT 1 MG/1 ML DISP.SYRIN ONE (23:50)
[2016-11-13 03:24] LABS: URINE APPEARANCE CLEAR; URINE BILIRUBIN NEGATIVE (NEGATIVE); URINE BLOOD NEGATIVE (NEGATIVE); URINE COLOR YELLOW; URINE GLUCOSE (UA) NEGATIVE (NEGATIVE); URINE KETONE 1+ (NEGATIVE); URINE LEUK ESTERASE NEGATIVE (NEGATIVE); URINE NITRITE NEGATIVE (NEGATIVE); URINE PROTEIN NEGATIVE (NEGATIVE); URINE UROBILINOGEN 4.0 E.U/dl mg/dL (0.2-1.0)
[2016-11-13] MEDS ORDERED: ACETAMINOPHEN 325 MG TABLET (FP) ONE (03:28)
[2016-11-13] MEDS ORDERED: ACETAMINOPHEN 325 MG TABLET (FP) PO ONE (03:32)
--- NOTE | 2016-11-13 05:22 | HP ---
CHIEF COMPLAINT: Bilateral LE Pain HISTORY OF PRESENT ILLNESS: Mr. Wilson is a 31yo M with a PMHx of HIV and Kaposi Sarcoma (last stated viral load was in 1,000s w/ CD4 451 appx 1 month ago) who presented with BLLE pain. States that pain started in R inner thigh, pressure like, intermittent, painful w/ movement. He also noticed redness in the area, which spread to both legs, and down to his calves. No known trauma to the area, no tick bites. Endorses fevers, chills. No sick contacts. Erythema is present on overlying L knee, and patient has difficulty standing up, but denies knee joint tenderness. Denies erythema + tenderness in other joints. Pt is intermittently not compliant w/ HAART regimen, and is sexually active with 1 partner but when asked about monogamy, he states he "is human". Denies CP, SOB, abdominal pain. As per ED staff note: "Pt states that he was calling for assistance to the bathroom so he could have a BM, and he states the help "wasn't quick enough" so he urinated and defecated on the floor of his room, then was confrontational with staff members. He became angry and tore his IV from his right hand, and began to dress stating he was leaving. He was eventually left the facility ambulating well being escorted by security." The patient returned to ER, stating he was "embarrassed" by his actions. His sister has told him that his personality has changed recently. ER course was notable for: (1) Hemodynamically stable. +SIRS: Tmax 101.3, HR 116, WBC 10.3 (2) Vanc + Zosyn (3) PO Tylenol Recent Travel: Denies PAST MEDICAL HISTORY: HIV, Kaposi Sarcoma PAST SURGICAL HISTORY: Denies Social History: Smokin/2PPD smoker Alcohol: Denies Drugs: Daily marijuana smoker Family History: Noncontributory Allergies sulfamethoxazole [From Bactrim] Allergy (Verified 11/12/16 21:09) trimethoprim [From Bactrim] Allergy (Verified 11/12/16 21:09) HOME MEDICATIONS: Home Medications Medication Instructions Recorded Norvir 100 mg PO DAILY 08/03/16 Prezista - 800 mg PO DAILY 08/03/16 Truvada - 400 mg PO DAILY 08/03/16 REVIEW OF SYSTEMS CONSTITUTIONAL: Absent: diaphoresis, generalized weakness, malaise, loss of appetite, weight change Present: fever, chills HEENT: Absent: rhinorrhea, nasal congestion, throat pain, throat swelling, difficulty swallowing, mouth swelling, ear pain, eye pain, visual changes CARDIOVASCULAR: Absent: chest pain, syncope, palpitations, irregular heart rate, lightheadedness , peripheral edema RESPIRATORY: Absent: cough, shortness of breath, dyspnea with exertion, orthopnea, wheezing, stridor, hemoptysis GASTROINTESTINAL: Absent: abdominal pain, abdominal distension, nausea, vomiting, diarrhea, constipation, melena, hematochezia GENITOURINARY: Absent: dysuria, frequency, urgency, hesitancy, hematuria, flank pain, genital pain MUSCULOSKELETAL: Absent: myalgia, arthralgia, joint swelling, back pain, neck pain SKIN: Absent: rash, itching, pallor HEMATOLOGIC/IMMUNOLOGIC: Absent: easy bleeding, easy bruising, lymphadenopathy, frequent infections ENDOCRINE: Absent: unexplained weight gain, unexplained weight loss, heat intolerance, cold intolerance NEUROLOGIC: Absent: headache, focal weakness or paresthesias, dizziness, unsteady gait, seizure, mental status changes, bladder or bowel incontinence PSYCHIATRIC: Absent: anxiety, depression, suicidal or homicidal ideation, hallucinations. Vital Signs Temperature 101.3 F H 11/12/16 17:02 Pulse Rate 116 H 11/12/16 17:02 Respiratory Rate 18 11/12/16 17:02 Blood Pressure 106/57 11/12/16 17:02 O2 Sat by Pulse Oximetry (%) 100 11/12/16 17:02 PHYSICAL EXAMINATION GEN: AAOx3, NAD, speaking in coherent sentences, mildly eccentric, at times laughing inappropriately, unsure of baseline HEENT: PERRLA, EOMi, No cervical LAD CV: S1, S2, RRR, No murmurs LUNG: CTABL ABD: Soft, NT, ND, normoactive BS MSK: Diffuse discolored plaques on shins bilaterally; One large discolored plaque on L inner thigh, erythema in bilateral thighs, extends to skin overlying L knee, to posterior calf, +warmth, -edema, no TTP to joints NEURO: CN 2-12 intact, no sensation deficits, MSK 5/5 in upper extremities; 3/5 in lower extremities due to pain, reflexes 2+ in upper extremities. Laboratory Last Values WBC 10.3 K/mm3 (4.0-10.0) H 11/12/16 17:48 RBC 4.20 M/mm3 (4.00-5.60) 11/12/16 17:48 Hgb 11.2 GM/dL (11.7-16.9) L 11/12/16 17:48 Hct 33.6 % (35.4-49) L 11/12/16 17:48 MCV 80.0 fl (80-96) 11/12/16 17:48 MCH 26.7 pg (25.7-33.7) 11/12/16 17:48 MCHC 33.4 g/dl (32.0-35.9) 11/12/16 17:48 RDW 20.4 % (11.9-15.9) H 11/12/16 17:48 Plt Count 293 K/MM3 (134-434) 11/12/16 17:48 MPV 7.1 fl (7.5-11.1) L 11/12/16 17:48 Neutrophils % 78.6 % (42.8-82.8) 11/12/16 17:48 Lymphocytes % 15.2 % (8-40) 11/12/16 17:48 Monocytes % 5.7 % (3.8-10.2) 11/12/16 17:48 Eosinophils % 0.1 % (0-4.5) 11/12/16 17:48 Basophils % 0.4 % (0-2.0) 11/12/16 17:48 PT with INR 14.40 SEC (9.98-11.88) H 11/12/16 17:48 INR 1.30 (0.82-1.09) H 11/12/16 17:48 VBG pH 7.40 (7.32-7.42) 11/12/16 18:55 POC VBG pCO2 47.6 mmHg (38-52) 11/12/16 18:55 POC VBG pO2 29.1 mmHg (28-48) 11/12/16 18:55 Mixed VBG HCO3 29.2 meq/L (19-25) H 11/12/16 18:55 Sodium 135 mmol/L (136-145) L 11/12/16 17:48 Potassium 3.8 mmol/L (3.5-5.1) 11/12/16 17:48 Chloride 95 mmol/L (98-107) L 11/12/16 17:48 Carbon Dioxide 31 mmol/L (21-32) 11/12/16 17:48 Anion Gap 9 (8-16) 11/12/16 17:48 BUN 9 mg/dL (7-18) 11/12/16 17:48 Creatinine 1.1 mg/dL (0.7-1.3) 11/12/16 17:48 Creat Clearance w eGFR > 60 (>60) 11/12/16 17:48 Random Glucose 91 mg/dL (74-106) 11/12/16 17:48 Lactic Acid 3.0 mmol/L (0.4-2.0) H* 11/12/16 17:48 Calcium 9.0 mg/dL (8.5-10.1) 11/12/16 17:48 Total Bilirubin 0.7 mg/dL (0.2-1.0) 11/12/16 17:48 AST 18 U/L (15-37) 11/12/16 17:48 ALT 20 U/L (12-78) 11/12/16 17:48 Alkaline Phosphatase 73 U/L (45-117) 11/12/16 17:48 Creatine Kinase 167 IU/L (39-308) 11/12/16 17:48 Creatine Kinase Index 0.5 % (0.0-5.0) 11/12/16 17:48 CK-MB (CK-2) < 1.000 ng/mL (0.5-3.6) 11/12/16 17:48 Troponin I < 0.02 ng/ml (0.00-0.05) 11/12/16 17:48 Total Protein 8.2 g/dl (6.4-8.2) 11/12/16 17:48 Albumin 3.2 g/dl (3.4-5.0) L 11/12/16 17:48 Blood Type O POSITIVE 11/12/16 17:48 Antibody Screen Negative 11/12/16 17:48 Home Medication List Medication Instructions Recorded Confirmed Type Norvir 100 mg PO DAILY 08/03/16 11/13/16 History Prezista - 800 mg PO DAILY 08/03/16 11/13/16 History Truvada - 400 mg PO DAILY 08/03/16 11/13/16 History Active Medications Generic Name Dose Route Start Last Admin Trade Name Cheryl PRN Reason Stop Dose Admin Acetaminophen 650 mg 11/13/16 01:14 Tylenol - PO Q4H PRN FEVER OR PAIN Heparin Sodium (Porcine) 5,000 unit 11/13/16 06:00 Heparin - SQ TID ROBERTH Sodium Chloride 1,000 mls @ 100 mls/hr 11/13/16 00:30 Normal Saline - IV ASDIR ROBERTH Vancomycin HCl 1,000 mg/ 250 mls @ 250 mls/hr 11/13/16 01:08 Dextrose IVPB 11/13/16 02:07 ONCE ONE Protocol Piperacillin Sod/Tazobactam 50 mls @ 100 mls/hr 11/13/16 09:00 Sod 3.375 gm/ Dextrose IVPB 11/13/16 09:29 ONCE ONE Protocol ASSESSMENT/PLAN: Pt is a 31yo M with PMHx of HIV noncompliant w/ HAART who presents w/ BLLE pain + erythema admitted for severe sepsis secondary to cellulitis. # Severe Sepsis - secondary to likely BLLE cellulitis, r/o septic arthritis - Received Vanc + Zosyn in ED, ID to continue - Blood cx, Urine cx - Lactic acid 3.0 --> 1.8 resolved - Knee XR to check for joint space tissue swelling - BLLE duplex - PO Tylenol 650 Q4 PRN for pain - ID Consult # ?AMS - baseline vs HIV encephalopathy vs PML vs infection - Contact Sister Viola for baseline mental status (number in chart) - RPR - UTox - MRI w/ and w/o contrast - Consider psych consult if organic workup is negative # HIV - intermittently compliant w/ meds - CD4 and Viral load - Continue HAART therapy - Heme/Onc consult # FEN - Fluids: None needed - Electrolytes: Mild hyponatremia, received fluids, monitor in AM - Nutrition: Regular Diet # Prophylaxis - DVT: Moderate risk - Heparin 5,000u SQ TID - GI: Not indicated - Deconditioning: PT orderd # Dispo - Admit to Med/Surg - Day team to call pharmacy to confirm HAART meds Case d/w Dr. Hogan and Dr. Emilio Kong MD - PGY1 Internal Medicine Visit type - Emergency Visit Emergency Visit: Yes ED Registration Date: 11/13/16 Care time: The patient presented to the Emergency Department on the above date and was hospitalized for further evaluation of their emergent condition. - New Patient This patient is new to me today: Yes Date on this admission: 11/13/16 - Critical Care Critical Care patient: No
[2016-11-13] MEDS ORDERED: PIPERACILLIN/TAZOBACTAM 3.375 GM VIAL IVPB ONE (05:50)
[2016-11-13] MEDS ORDERED: DEXTROSE 5%-WATER - 50 ML IVPB ONE (05:51)
[2016-11-13] MEDS ORDERED: VANCOMYCIN 1 GRAM (PRE-DOCKED) 1,000 MG/250 ML BAG IVPB ONE (06:00)
[2016-11-13] MEDS ORDERED: PIPERACILLIN/TAZOB 3.375 GM 3.375 GM in DEXTROSE 5%-WATER - 50 ML IVPB ONE (06:00)
[2016-11-13] MEDS ORDERED: VANCOMYCIN 1,000 MG in DEXTROSE 5%-WATER - 250 ML IVPB ONE (06:00)
[2016-11-13] MEDS: HEPARIN NA (PORCINE) 5,000 UNITS/ML 1ML VIAL SQ SCH ×3 (06:01→23:48)
[2016-11-13 08:22] LABS: BASOPHIL 0.5 % (0-2.0); EOSINOPHIL 0.7 % (0-4.5); MCH 26.3 pg (25.7-33.7); MCHC 33.2 g/dl (32.0-35.9); MEAN CELL VOLUME 79.2 fl (80-96); MEAN PLT VOLUME 6.9 fl (7.5-11.1); NEUTROPHILS 76.9 % (42.8-82.8); PLATELET COUNT 287 K/MM3 (134-434); RDW 20.6 % (11.9-15.9); WHITE BLOOD COUNT 11.9 K/mm3 (4.0-10.0)
[2016-11-13 08:50] LABS: ALBUMIN 2.6 g/dl (3.4-5.0); ALK PHOS 59 U/L (45-117); ANION GAP 3 (8-16); BILIRUBIN,TOTAL 0.6 mg/dL (0.2-1.0); CALCIUM 7.8 mg/dL (8.5-10.1); CO2 31 mmol/L (21-32); CREATININE 0.9 mg/dL (0.7-1.3); GLUCOSE,RANDOM 101 mg/dL (74-106); SGOT/AST 18 U/L (15-37); SGPT/ALT 18 U/L (12-78); TOT PROT 6.9 g/dl (6.4-8.2)
[2016-11-13] MEDS ORDERED: EMTRICITABINE 200MG/TENOFOVIR 300MG PO SCH (10:00)
[2016-11-13] MEDS ORDERED: TENOFOVIR DISOPROXIL FUMARATE PO SCH (10:00)
[2016-11-13] MEDS ORDERED: EMTRICITABINE PO SCH (10:00)
--- NOTE | 2016-11-13 10:47 | CONSULT ---
Consult Consult Specialty:: Hematology Oncology Referred by:: Maryann Tucker Reason for Consultation:: Kaposi's Sarcoma - History of Present Illness Chief Complaint: pain in legs/calves History of Present Illness: 31 y/o M w hx HIV on HAART , hx Kaposi's Sarcoma since 2009, who was doing fairly well until 3 days ago when he began to develop pain in calves, then knees , fevers/chills assoc w rash , admitted for cellulitis , possible septic arthritis/sepsis, started on broad-spectrum ab's ; he also had periods of altered mental status. He relates a hx of Kaposi's Sarcoma , bx of a L axillary LN at [facility] ([facility]) confirming this; pt had extensive plaque like disease mainly involving lower extremities , and few on upper ext' He was treated w 6 cycles Doxil at that time and responded well ; he also received RT to the disease in the upper thighs. He believes the residual purple skin lesions are stable since that time . He denies any signif. SOB/cough/sputum , new skin lesions or enlarged LN's. He is starting to feel better , but he has pain in LE's ; doppler LE's neg for DVT and knee x-rays neg. CBC/CMP not very remarkable. - History Source History Provided By: Patient Limitations to Obtaining History: No Limitations - Past Medical History P[employer] WORKER: Yes: Other (recent reported alteration in MS- now improved) Cardio/Vascular: No: AFIB, Aneurysm, Aortic Insufficiency, Aortic Stenosis, CAD , CHF, Deep Vein Thrombosis, HTN, Hyperlipdemia, [place], Mitral Insufficiency, Mitral Stenosis, Murmur, Pulmonary Hypertension, Other Pulmonary: No: Asthma, Bronchitis, Cancer, COPD, O2 Dependent, Pneumonia, Previously Intubated, Pulmonary Embolus, Pulmonary Fibrosis, Sleep Apnea, Other Gastrointestinal: No: Ascites, Cancer, Constipation, Crohn's Disease, Diverticulitis, Diverticulosis, Esophageal Varices, Gastritis, GERD, GI Bleed, Hemorrhoids, Hiatal Hernia, Inflamatory Bowel Disease, Irritable Bowel Disease, Pancreatitis, Peptic Ulcer Disease, Ulcerative Colitis, Other Hepatobiliary: No: Cirrhosis, Cholelithiasis, Cholecystitis, Choledocholithiasis , Hepatitis A, Hepatitis B, Hepatitis C, Other Heme/Onc: Yes: Cancer Infectious Disease: Yes: HIV Psych: No: Addictions, Anxiety, Bipolar, Depression, Panic, Psychosis, Schizophrenia, Other Musculoskeletal: No: Bursitis, Chronic low back pain, Hemiparesis, Hemiplegia, Osteoarthritis, Paraplegia, Other Rheumatology: No: Fibromyalgia, Gout, Lupus, Rheumatoid Arthritis, Sarcoidosis, Vasculitis, Other ENT: No: Allergic Rhinitis, Sinusitis, Other Endocrine: No: [place]'s Disease, Yvonne's Disease, Diabetes Insipidus, Diabetes Mellitus, Hyperparathyroidism, Hyperthyroidism, Hypothyroidism, Osteopenia, SIADH, Other Dermatology: Yes: Other (Kaposi's) - Past Surgical History Past Surgical History: No: None, AAA Repair, AICD, Amputation, Appendectomy, Arthrosocopy, AV Fistula/Graft, Bariatric Surgery, Breast Biopsy, Bypass, CABG, Carotid Endarterectomy, Cataract Removal, Cholecystectomy, Colectomy, Colonoscopy, Colostomy, Craniotomy, , Cystectomy, Hernia Repair, Hysterectomy, Ileal Conduit, Ileosotomy, Joint Replacement, Kidney Transplant, Laminectomy, Liver Transplant, Mastectomy, Nephrectomy, Oopherectomy, Orchiectomy, Permanent Pacemaker, Prostatectomy, Splenectomy, Stent, Thoracotomy , TURP, Tonsillectomy, Tubal Ligation, Upper Endoscopy, Valve Replacement, Vasectomy, Vein Stripping/Ligation - Alcohol/Substance Use Hx Alcohol Use: No - Smoking History Smoking history: Current every day smoker Have you smoked in the past 12 months: Yes Aproximately how many cigarettes per day: 10 Home Medications - Allergies Allergies/Adverse Reactions: Allergies Allergy/AdvReac Type Severity Reaction Status Date / Time sulfamethoxazole Allergy Verified 11/12/16 21:09 [From Bactrim] trimethoprim [From Bactrim] Allergy Verified 11/12/16 21:09 - Home Medications Home Medications: Ambulatory Orders Norvir 100 mg PO DAILY 08/03/16 Prezista - 800 mg PO DAILY 08/03/16 Truvada - 200 mg PO DAILY 08/03/16 Review of Systems - Review of Systems Constitutional: reports: Chills, Fever, Lethargy, Malaise Eyes: reports: No Symptoms HENT: reports: No Symptoms Neck: reports: No Symptoms Cardiovascular: reports: No Symptoms Respiratory: reports: No Symptoms Gastrointestinal: reports: No Symptoms Genitourinary: reports: No Symptoms Musculoskeletal: reports: Decreased ROM, Extremity Pain, Joint Pain, Joint Swelling Integumentary: reports: Rash (mild rash on legs reportedly improved ; no change in numerous Kapsosi's lesions since 2009 LE's) Physical Exam Vital Signs: Vital Signs Temperature 99.8 F H 11/13/16 05:00 Pulse Rate 91 H 11/13/16 05:00 Respiratory Rate 18 11/13/16 05:00 Blood Pressure 119/65 11/13/16 05:00 O2 Sat by Pulse Oximetry (%) 98 11/13/16 04:45 Constitutional: Yes: Well Nourished, No Distress, Calm Eyes: Yes: WNL, Conjunctiva Clear, EOM Intact HENT: Yes: WNL, Atraumatic, Normocephalic Neck: Yes: WNL, Supple, Trachea Midline Cardiovascular: Yes: WNL, Regular Rate and Rhythm Respiratory: Yes: WNL, Regular, CTA Bilaterally Gastrointestinal: Yes: WNL, Normal Bowel Sounds, Soft Breast(s): Yes: WNL Musculoskeletal: Yes: Joint Stiffness (diffuse sensitivity /tenderness legs/ knees/calves), Joint Swelling Extremities: Yes: Erythema (minimal) Edema: No Peripheral Pulses WNL: Yes Labs: CBC, BMP 11/13/16 06:50 11/13/16 06:50 Problem List - Problems (1) Kaposi sarcoma Code(s): C46.9 - KAPOSI'S SARCOMA, UNSPECIFIED Assessment/Plan 31 y/o M w hx Kaposis's / HIV Rx in 2009 w doxil and RT to thigh areas w good response lyn per pt hx.On PE, his purple skin lesions are fairly flat, not plaque-like, and he has no palp. lymphadenopathy or hepatosplenomegaly. Although I cannot say for certain pt has any other sites of KS involvement , it is unlikely since there is no noticeable dermatologic progression in 7 yrs. He does not need any Rx at this time , continue observation. Would recomend a routine CXR .Continue Rx of infection.
[2016-11-13] MEDS: ACETAMINOPHEN 325 MG TABLET (FP) PO PRN ×2 (11:34→19:28)
--- NOTE | 2016-11-13 11:34 | PN ---
Progress Note (short form) - Note Progress Note: ID consult dictated imp/reccd 31 year old man with HIV/history of KS treated with chemo and RT in 2009, followed by Dr Brito- clinic called [id number] in February 2016, viral load undetectable in july 2016, received penicillin im in July for syphilis developed pain and both his thighs 3 days ago, went to [facility] on the 18 with 2 day history of bilateral leg pain left ED, came here to [facility] was seen 11/12 left and returned 11/13 he got care at the [facility] many years ago and is at his baseline mental status notes progressive pain in his legs no bug bites, no water exposure no penile discharge no shaving no pet scratches has a pet dog now with fevers as well denies rigors notes he feels hot and cold duplex negative for dvt sepsis- lactic acid 3 with fever on admission bilateral leg cellulitis- no perineal pain or scrotal pain vancomycin/rocephin f/u cultures gc/chlamydia rpr staph/strep most likely esr/crp hiv- continue truvada/norvir/prezista history of KS history of syphilis- check RPR Problem List - Problems (1) Sepsis Code(s): A41.9 - SEPSIS, UNSPECIFIED ORGANISM Qualifiers: Sepsis type: sepsis due to unspecified organism Qualified Code(s): A41.9 - Sepsis, unspecified organism (2) Cellulitis Code(s): L03.90 - CELLULITIS, UNSPECIFIED Qualifiers: Site of cellulitis: extremity Site of cellulitis of extremity: lower extremity Laterality: unspecified laterality Qualified Code(s): L03.119 - Cellulitis of unspecified part of limb (3) HIV (human immunodeficiency virus infection) Code(s): B20 - HUMAN IMMUNODEFICIENCY VIRUS [HIV] DISEASE (4) Kaposi sarcoma Code(s): C46.9 - KAPOSI'S SARCOMA, UNSPECIFIED
[2016-11-13] MEDS: SODIUM CHLORIDE 1,000 ML IV SCH (11:36)
[2016-11-13] MEDS ORDERED: CEFTRIAXONE 2 GM in DEXTROSE 5%-WATER 100 ML IVPB SCH (11:45)
[2016-11-13] MEDS ORDERED: DEXTROSE 5%-WATER 100 ML IVPB ONE ×2 (13:07→20:34)
[2016-11-13] MEDS: RITONAVIR 100 MG TABLET PO SCH (13:20)
[2016-11-13] MEDS: DARUNAVIR ETHANOLATE 800 MG TAB PO SCH (13:20)
[2016-11-13] MEDS: EMTRICITABINE 200MG/TENOFOVIR 300MG PO SCH (13:20)
[2016-11-13] MEDS: oxyCODONE HCL 5 MG TABLET PO PRN ×2 (13:21→19:28)
--- NOTE | 2016-11-13 15:53 | PN ---
Physical Exam: SUBJECTIVE: Patient seen and examined. Said he has a lot of thigh and aguilar pain b/L in the lower extremities. Says he feels warm. He rates the pain as a 10/ 10. He denies chest pain, headache, nausea, vomiting, dizziness. OBJECTIVE: Vital Signs Period Temp Pulse Resp BP Sys/Richter Pulse Ox Last 24 Hr 99.8 F-101.5 F 91-109 16-22 106-119/45-69 96-98 GENERAL: The patient is awake, alert, and fully oriented, in no acute distress. HEAD: Normal with no signs of trauma. EYES: PERRL, extraocular movements intact, sclera anicteric. ENT: oropharynx clear without exudates, moist mucous membranes. NECK:supple. LUNGS: Breath sounds equal, clear to auscultation bilaterally, no wheezes, no crackles, no accessory muscle use. HEART: Regular rate and rhythm, S1, S2 without murmur, rub or gallop. ABDOMEN: Soft, nontender, nondistended, normoactive bowel sounds, no guarding, no rebound, no hepatosplenomegaly, no masses. EXTREMITIES: B/L thigh and aguilar extreme tenderness R>L. Scattered Discolored plaques B/L on thighs and shins with warmth. Non-erythematous. No edema. NEUROLOGICAL: Cranial nerves II through XII grossly intact. Normal speech, gait not observed. PSYCH: Normal mood, normal affect. Laboratory Results - last 24 hr 11/13/16 11/13/16 11/13/16 03:10 06:50 06:50 WBC 11.9 H RBC 3.97 L Hgb 10.5 L Hct 31.5 L MCV 79.2 L MCH 26.3 MCHC 33.2 RDW 20.6 H Plt Count 287 MPV 6.9 L Absolute Lymphs (auto) Neutrophils % 76.9 Lymphocytes % 11.4 D Monocytes % 10.5 H D Eosinophils % 0.7 D Basophils % 0.5 Lymphocytes Nucleated RBCs Sodium 134 L Potassium 3.6 Chloride 100 Carbon Dioxide 31 Anion Gap 3 L BUN 9 Creatinine 0.9 Creat Clearance w eGFR > 60 Random Glucose 101 Calcium 7.8 L Total Bilirubin 0.6 AST 18 ALT 18 Alkaline Phosphatase 59 Total Protein 6.9 Albumin 2.6 L Urine Color Yellow Urine Appearance Clear Urine pH 5.0 Ur Specific [place] >= 1.030 H Urine Protein Negative Urine Glucose (UA) Negative Urine Ketones 1+ H Urine Blood Negative Urine Nitrite Negative Urine Bilirubin Negative Urine Urobilinogen 4.0 e.u/dl Absolute CD3 Count % CD3+ Lymphocytes Absolute CD4 [place] % CD4+ Lymphocyte CD4/CD8 Ratio % CD8+ Lymphocyte Absolute CD8 Count RPR Titer HIV-1 RNA, Qual (TMA) 11/13/16 11/13/16 06:50 06:50 WBC Cancelled RBC Hgb Hct MCV MCH MCHC RDW Plt Count MPV Absolute Lymphs (auto) Cancelled Neutrophils % Lymphocytes % Monocytes % Eosinophils % Basophils % Lymphocytes Cancelled Nucleated RBCs Cancelled Sodium Potassium Chloride Carbon Dioxide Anion Gap BUN Creatinine Creat Clearance w eGFR Random Glucose Calcium Total Bilirubin AST ALT Alkaline Phosphatase Total Protein Albumin Urine Color Urine Appearance Urine pH Ur Specific [place] Urine Protein Urine Glucose (UA) Urine Ketones Urine Blood Urine Nitrite Urine Bilirubin Urine Urobilinogen Absolute CD3 Count Cancelled % CD3+ Lymphocytes Cancelled Absolute CD4 [place] Cancelled % CD4+ Lymphocyte Cancelled CD4/CD8 Ratio Cancelled % CD8+ Lymphocyte Cancelled Absolute CD8 Count Cancelled RPR Titer Cancelled HIV-1 RNA, Qual (TMA) Cancelled Active Medications Generic Name Dose Route Start Last Admin Trade Name Freq PRN Reason Stop Dose Admin Acetaminophen 650 mg 11/13/16 05:19 11/13/16 11:34 Tylenol - PO 650 mg Q4H PRN Administration FEVER OR PAIN Darunavir 800 mg 11/13/16 10:00 11/13/16 13:20 Prezista - PO 800 mg DAILY ROBERTH Administration Emtricitabine/Tenofovir 1 tab 11/13/16 11:28 11/13/16 13:20 Truvada PO 1 tab DAILY ROBERTH Administration Heparin Sodium (Porcine) 5,000 unit 11/13/16 06:00 11/13/16 06:01 Heparin - SQ 5,000 unit TID ROBERTH Administration Sodium Chloride 1,000 mls @ 100 mls/hr 11/13/16 08:45 11/13/16 11:36 Normal Saline - IV 100 mls/hr ASDIR ROBERTH Administration Ceftriaxone Sodium 2 gm/ 100 mls @ 200 mls/hr 11/13/16 11:45 11/13/16 13:19 Dextrose IVPB 200 mls/hr DAILY ROBERTH Administration Oxycodone HCl 5 mg 11/13/16 13:14 11/13/16 13:21 Roxicodone - PO 5 mg Q6H PRN Administration PAIN Ritonavir 100 mg 11/13/16 10:00 11/13/16 13:20 Norvir - PO 100 mg DAILY ROBERTH Administration Vancomycin HCl 1,000 mg 11/13/16 18:00 Vancomycin (Pre-Docked) IVPB BID@0600,1800 [facility] Protocol ASSESSMENT/PLAN: #Severe Sepsis secondary to Cellulitis -pending cultures -Lactic Acid 3 during admission----> now 1.8 -immunocompromised state from HIV infection. -continue IV Vancomycin and Ceftriaxone as per ID -Ceftriaxone given because history of STD's. -will f/u ID #HIV -Continue HAART meds -intermittently compliant w/ meds -CD4, viral load pending #Pain control -Continue oxycodone 5mg #FEN - NS 100 CC -Electrolytes WNL -Regular diet #PPX -Heparin sub q 5000 -NO Gi prophylaxis Visit type - Emergency Visit Emergency Visit: Yes ED Registration Date: 11/13/16 Care time: The patient presented to the Emergency Department on the above date and was hospitalized for further evaluation of their emergent condition. - New Patient This patient is new to me today: Yes Date on this admission: 11/13/16 - Critical Care Critical Care patient: No
--- NOTE | 2016-11-13 17:30 | CONS ---
DATE OF CONSULTATION: 11/13/2016 This is a 31-year-old man that I know from about 5 or 6 years ago, when he got his care at the [facility]. He was last there in 2010. He presented with AIDS and KS at that time. He was subsequently referred for treatment of his KS and was treated in 2009 with chemo and RT. This was all done at [facility]. At that time, he moved to [facility] and he shifted his HIV care to Dr. Addison Brito at the HIV clinic there. He has been on Prezista, Norvir, and Truvada since that time. Three days ago, he developed progressive pain in his legs. He does not relate this to any activity. 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 He denies any bug bites. He denies any pet scratches. He has a pet dog at home. His residual KS is unchanged. The lesions have been stable. He has radiation changes on his inner thighs, which he reports is stable as well. He was not aware he had fever. He originally went to [facility] emergency room for care, was not satisfied, and left. He came here on the , again was not satisfied and left and returned on the . He describes the pain as so severe that he cannot walk. He has no cough. He has no headache. He has no rigors. He notes that he feels hot and cold. He has no chills. He denies any cough, dysuria, or diarrhea. He is allergic to BACTRIM. Medications include Norvir, Truvada, and Prezista. SOCIAL HISTORY: He smokes 10 cigarettes a day. There is no history of any alcohol use. He lives with his sister. 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 His review of systems is otherwise negative. PHYSICAL EXAMINATION: General: He is awake and alert. Vital Signs: Temperature is 101.5. Pulse 95. Blood pressure 118/45. Respiratory rate 18. He is saturating 98% on room air. HEENT: He is normocephalic. His eyes are anicteric. He has no thrush. Neck: No nuchal rigidity. Lungs: Clear to auscultation. Heart: Regular rate and rhythm. Abdomen: Soft, nontender. Extremities: Notable for scattered KS lesions on his lower legs that he reports is unchanged. He has radiation changes in his inner thighs. He has pain on touching both his inner thighs extending down to below his knees. He is able to move his ankles without any pain. He is able to move his hips without any pain. Labs are notable for a white count of 11.9, hemoglobin 10.5, platelets 287. BUN 9, creatinine 0.9. CPK is normal. Urinalysis is negative. He had duplex of his legs that are negative for DVT. I called his clinic. His viral load in July was undetectable. His T cells from February are 448. He was treated with penicillin x1 for syphilis in July as well. In summary, this is a 31-year-old young man with HIV disease and KS, T cells in the 400s, admitted with: 1. Fever, bilateral leg pain and erythema. There is no fluctuance or crepitus noted of his legs. He has severe pain and warmth on touching his legs from the inner thigh down to above the ankles. There is no noted effusions. Would treat him at this time with vancomycin and ceftriaxone. Would follow up his cultures. Would send a urine for GC and Chlamydia testing and RPR has been ordered. Most likely staphylococcus or streptococcus infection. Would obtain a sedimentation rate and a CRP as well. 2. Regarding his human immunodeficiency virus, T cells are 448 in February. Would continue Truvada, Norvir, Prezista. 3. History of Kaposi sarcoma. 4. History of syphilis. Would check an RPR. Further recommendations to follow. CHEL FLORIAN M.D. [id number]
[2016-11-13] MEDS: VANCOMYCIN 1 GRAM (PRE-DOCKED) 1,000 MG/250 ML BAG IVPB SCH (18:15)
--- NOTE | 2016-11-13 18:56 | PN ---
Teaching Attending Note Name of Resident: Fausto Suresh ATTENDING PHYSICIAN STATEMENT I saw and evaluated the patient. I reviewed the resident's note and discussed the case with the resident. I agree with the resident's findings and plan as documented. SUBJECTIVE: no fever or chills, has pain in Legs , reports fevre at home OBJECTIVE: NAD CV : RRR, 3/6 SM at base Lungs : CTAB Ext : no edema. TTP over lateral aspect of R leg and thigh. and medial aspect of RL leg and thigh . no knee effusion, no erythema , but increased warmth . Abd ; soft, NT, ND , NL BS. Skin: black , thick, raised areas on lateral legs and R inner thigh. declined buttock and scrotal exam ASSESSMENT AND PLAN: 31 y/o man with h/o HIV and Kaposi Sarcoma who presented with fever and pain in Legs , was found to have cellulitis of LE 1- severe sepsis due to Cellulitis of b/l LE: - switch to zosyn and vanco . D/W ID - check CT of LE due to pain being out of proportion to exam. -folow blood cx - IV fluids 2- Kappozi's sarcoma : appreciate Onc input . - check Cxray 3- HIV: cont meds - no need fro viral load. D/W Dr. ward 4- AGitation in ER, resolved . NOt confused. MRI of brain cancelled. Agree Dispo : HLOC
[2016-11-13] MEDS ORDERED: PIPERACILLIN/TAZOB 3.375 GM 3.375 GM in DEXTROSE 5%-WATER - 50 ML IVPB SCH (19:00)
[2016-11-13] MEDS ORDERED: PIPERACILLIN/TAZOBACTAM 4.5 GM VIAL IVPB ONE (20:34)
[2016-11-13] MEDS: PIPERACILLIN/TAZOB 4.5 GM 4.5 GM in DEXTROSE 5%-WATER 100 ML IVPB SCH (20:36)
[2016-11-14] MEDS ORDERED: DEXTROSE 5%-WATER 100 ML IVPB ONE ×2 (00:51→09:47)
[2016-11-14] MEDS ORDERED: PIPERACILLIN/TAZOBACTAM 4.5 GM VIAL IVPB ONE ×2 (00:51→09:47)
[2016-11-14 01:27] LABS: URINE MARIJUANA THC POSITIVE ng/ml (CUTOFF=50)
[2016-11-14] MEDS: PIPERACILLIN/TAZOB 4.5 GM 4.5 GM in DEXTROSE 5%-WATER 100 ML IVPB SCH ×3 (02:15→19:18)
[2016-11-14] MEDS: SODIUM CHLORIDE 1,000 ML IV SCH ×2 (06:03→12:28)
[2016-11-14] MEDS: VANCOMYCIN 1 GRAM (PRE-DOCKED) 1,000 MG/250 ML BAG IVPB SCH ×2 (06:04→19:18)
[2016-11-14] MEDS: oxyCODONE HCL 5 MG TABLET PO PRN (06:06)
[2016-11-14] MEDS: HEPARIN NA (PORCINE) 5,000 UNITS/ML 1ML VIAL SQ SCH ×3 (06:08→22:36)
[2016-11-14 08:12] LABS: MCH 26.4 pg (25.7-33.7); MCHC 32.9 g/dl (32.0-35.9); MEAN PLT VOLUME 6.4 fl (7.5-11.1); PLATELET COUNT 310 K/MM3 (134-434); RDW 20.3 % (11.9-15.9); WHITE BLOOD COUNT 10.4 K/mm3 (4.0-10.0)
[2016-11-14 08:43] LABS: ALBUMIN 2.6 g/dl (3.4-5.0); ANION GAP 6 (8-16); CO2 31 mmol/L (21-32); GLUCOSE,RANDOM 149 mg/dL (74-106)
[2016-11-14 08:47] LABS: ALK PHOS 66 U/L (45-117); BILIRUBIN,TOTAL 0.5 mg/dL (0.2-1.0); CREATININE 0.8 mg/dL (0.7-1.3); SGOT/AST 18 U/L (15-37); SGPT/ALT 17 U/L (12-78); TOT PROT 6.9 g/dl (6.4-8.2)
[2016-11-14] MEDS ORDERED: PT OWN MED DRAWER 7, Y5N ONE (09:46)
[2016-11-14] MEDS: RITONAVIR 100 MG TABLET PO SCH (09:49)
[2016-11-14] MEDS: DARUNAVIR ETHANOLATE 800 MG TAB PO SCH (09:50)
[2016-11-14] MEDS: EMTRICITABINE 200MG/TENOFOVIR 300MG PO SCH (09:50)
[2016-11-14] MEDS ORDERED: diphenhydrAMINE HCL 25 MG CAPSULE (FP) PO ONE ×2 (11:15→19:50)
[2016-11-14] MEDS ORDERED: POTASSIUM CHLORIDE TABS 20 MEQ TABLET.ER (FP) PO ONE (12:45)
--- NOTE | 2016-11-14 13:23 | PN ---
Progress Note, Physician Chief Complaint: ID I used to care for MR Wilson many years ago but he has now seen Dr Gotti in the [place] for many years and doing well Antibiotics Vancomycin & Aztreonam - Current Medication List Current Medications: Active Medications Acetaminophen (Tylenol -) 650 mg PO Q4H PRN PRN Reason: FEVER OR PAIN Last Admin: 11/13/16 19:28 Dose: 650 mg Darunavir (Prezista -) 800 mg PO DAILY [facility] Last Admin: 11/14/16 09:50 Dose: 800 mg Emtricitabine/Tenofovir (Truvada) 1 tab PO DAILY [facility] Last Admin: 11/14/16 09:50 Dose: 1 tab Heparin Sodium (Porcine) (Heparin -) 5,000 unit SQ TID [facility] Last Admin: 11/14/16 06:08 Dose: 5,000 unit Sodium Chloride (Normal Saline -) 1,000 mls @ 100 mls/hr IV ASDIR [facility] Last Admin: 11/14/16 12:28 Dose: Not Given Piperacillin Sod/Tazobactam (Sod 4.5 gm/ Dextrose) 100 mls @ 200 mls/hr IVPB Q8H-IV [facility] Last Admin: 11/14/16 12:24 Dose: 200 mls/hr Oxycodone HCl (Roxicodone -) 5 mg PO Q6H PRN PRN Reason: PAIN Last Admin: 11/14/16 06:06 Dose: 5 mg Ritonavir (Norvir -) 100 mg PO DAILY [facility] Last Admin: 11/14/16 09:49 Dose: 100 mg Vancomycin HCl (Vancomycin (Pre-Docked)) 1,000 mg IVPB BID@0600,1800 [facility] PRN Reason: Protocol Last Admin: 11/14/16 06:04 Dose: 1,000 mg - Objective Vital Signs: Vital Signs Temperature 98 F 11/14/16 10:02 Pulse Rate 79 11/14/16 10:02 Respiratory Rate 18 11/14/16 10:02 Blood Pressure 102/51 11/14/16 10:02 O2 Sat by Pulse Oximetry (%) 98 11/13/16 21:00 Eyes: Yes: WNL, Conjunctiva Clear HENT: Yes: WNL, Atraumatic Neck: Yes: WNL, Supple Cardiovascular: Yes: Regular Rate and Rhythm, S1, S2. No: Murmur Respiratory: Yes: WNL, Regular, CTA Bilaterally Gastrointestinal: Yes: WNL, Normal Bowel Sounds, Soft. No: Tenderness, Epigastrium Extremities: Yes: Other (Induration plaques both thighs Both thighs warm to touch tender no abscess) Labs: CBC, BMP 11/14/16 07:30 11/14/16 07:30 Assessment/Plan Microbiology 11/12/16 17:48 Blood - Peripheral Venous Blood Culture - Preliminary NO GROWTH OBTAINED AFTER 24 HOURS, INCUBATION TO CONTINUE FOR 4 DAYS. 11/12/16 17:48 Blood - Peripheral Venous Blood Culture - Preliminary NO GROWTH OBTAINED AFTER 24 HOURS, INCUBATION TO CONTINUE FOR 4 DAYS. Laboratory Tests 11/14/16 11/14/16 11/14/16 00:45 07:30 07:30 WBC 10.4 H Plt Count 310 Anion Gap 6 L BUN 4 L D Creatinine 0.8 Opiates Screen Positive MDMA (Ecstasy) Screen Positive U Marijuana (THC) Screen Positive Assessment AIDS History of KS LE S/P chemotherapy radiation Plan Continue current antibiotics ART and check [facility] javier Cobb MD
--- NOTE | 2016-11-14 13:54 | PN ---
Physical Exam: SUBJECTIVE: Patient seen and examined. Says he feels much better today. He said the pain is still there but significantly better than yesterday. He said he is able to walk on it today. OBJECTIVE: Vital Signs Period Temp Pulse Resp BP Sys/Richter Pulse Ox Last 24 Hr 98 F-101.3 F 79-98 18-22 102-163/51-70 98 GENERAL: The patient is awake, alert, and fully oriented, in no acute distress. HEAD: Normal with no signs of trauma. EYES: PERRL, extraocular movements intact, sclera anicteric. ENT: oropharynx clear without exudates, moist mucous membranes. NECK:supple. LUNGS: Breath sounds equal, clear to auscultation bilaterally, no wheezes, no crackles, no accessory muscle use. HEART: Regular rate and rhythm, S1, S2 without murmur, rub or gallop. ABDOMEN: Soft, nontender, nondistended, normoactive bowel sounds, no guarding, no rebound, no hepatosplenomegaly, no masses. EXTREMITIES: Improved B/L thigh and aguilar tenderness R>L. Scattered Discolored plaques B/L on thighs and shins with warmth. Non-erythematous. No edema. NEUROLOGICAL: Cranial nerves II through XII grossly intact. Normal speech, gait not observed. PSYCH: Normal mood, normal affect. Laboratory Results - last 24 hr 11/14/16 11/14/16 11/14/16 00:45 07:30 07:30 WBC 10.4 H RBC 4.01 Hgb 10.6 L Hct 32.1 L MCV 80.0 MCH 26.4 MCHC 32.9 RDW 20.3 H Plt Count 310 MPV 6.4 L Sodium 136 Potassium 3.4 L Chloride 99 Carbon Dioxide 31 Anion Gap 6 L BUN 4 L D Creatinine 0.8 Creat Clearance w eGFR > 60 Random Glucose 149 H D Calcium 8.0 L Total Bilirubin 0.5 AST 18 ALT 17 Alkaline Phosphatase 66 Total Protein 6.9 Albumin 2.6 L Opiates Screen Positive Methadone Screen Negative Barbiturate Screen Negative Phencyclidine Screen Negative Ur Amphetamines Screen Negative MDMA (Ecstasy) Screen Positive Benzodiazepines Screen Negative Cocaine Screen Negative U Marijuana (THC) Screen Positive Active Medications Generic Name Dose Route Start Last Admin Trade Name Freq PRN Reason Stop Dose Admin Acetaminophen 650 mg 11/13/16 05:19 11/13/16 19:28 Tylenol - PO 650 mg Q4H PRN Administration FEVER OR PAIN Darunavir 800 mg 11/13/16 10:00 11/14/16 09:50 Prezista - PO 800 mg DAILY ROBERTH Administration Emtricitabine/Tenofovir 1 tab 11/13/16 11:28 11/14/16 09:50 Truvada PO 1 tab DAILY ORBERTH Administration Heparin Sodium (Porcine) 5,000 unit 11/13/16 06:00 11/14/16 06:08 Heparin - SQ 5,000 unit TID ROBERTH Administration Sodium Chloride 1,000 mls @ 100 mls/hr 11/13/16 08:45 11/14/16 12:28 Normal Saline - IV Not Given ASDIR ROBERTH Piperacillin Sod/Tazobactam 100 mls @ 200 mls/hr 11/13/16 19:00 11/14/16 12:24 Sod 4.5 gm/ Dextrose IVPB 200 mls/hr Q8H-IV ROBERTH Administration Oxycodone HCl 5 mg 11/13/16 13:14 11/14/16 06:06 Roxicodone - PO 5 mg Q6H PRN Administration PAIN Ritonavir 100 mg 11/13/16 10:00 11/14/16 09:49 Norvir - PO 100 mg DAILY ROBERTH Administration Vancomycin HCl 1,000 mg 11/13/16 18:00 11/14/16 06:04 Vancomycin (Pre-Docked) IVPB 1,000 mg BID@0600,1800 ROBERTH Administration Protocol ASSESSMENT/PLAN: #Severe Sepsis secondary to Cellulitis -urine cultures negative -Pelvic and LE CT reveals cellulitis with no evidence of abscess or necrosis. -Lactic Acid 3 during admission----> last reading 1.8 -immunocompromised state from HIV infection. -Day 2 IV Antibiotics: Vancomycin and Zosyn as per ID -vanc trough in the morning -will f/u ID #HIV -Continue HAART meds -intermittently compliant w/ meds -CD4, viral load pending #Pain control -Continue oxycodone 5mg #FEN - NS 100 CC -Potassium repleted -Regular diet #PPX -Heparin sub q 5000 -NO Gi prophylaxis Visit type - Emergency Visit Emergency Visit: Yes ED Registration Date: 11/13/16 Care time: The patient presented to the Emergency Department on the above date and was hospitalized for further evaluation of their emergent condition. - New Patient This patient is new to me today: No - Critical Care Critical Care patient: No
[2016-11-14] MEDS: FLU VACCINE QUAD 60 MCG/0.5 ML (MDV 17-18) IM ONE ×2 (16:09→23:16)
--- NOTE | 2016-11-14 20:09 | PN ---
Teaching Attending Note Name of Resident: Fausto Suresh ATTENDING PHYSICIAN STATEMENT I saw and evaluated the patient. I reviewed the resident's note and discussed the case with the resident. I agree with the resident's findings and plan as documented. SUBJECTIVE: no fever ro chills, feels better OBJECTIVE: NAD CV : RRR, 3/6 SM at base Lungs : CTAB Ext : no edema. no TTP over legs today . no knee effusion, no erythema , but increased warmth . Abd ; soft, NT, ND , NL BS. Skin: black , thick, raised areas on lateral legs and R inner thigh. 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 cxray with no lesions 3- HIV: cont meds
[2016-11-15] MEDS: PIPERACILLIN/TAZOB 4.5 GM 4.5 GM in DEXTROSE 5%-WATER 100 ML IVPB SCH ×2 (02:12→10:25)
[2016-11-15 06:06] LABS: ECSTACY (MDMA) Negative (Cutoff=500)
[2016-11-15] MEDS: VANCOMYCIN 1 GRAM (PRE-DOCKED) 1,000 MG/250 ML BAG IVPB SCH (06:53)
[2016-11-15] MEDS: HEPARIN NA (PORCINE) 5,000 UNITS/ML 1ML VIAL SQ SCH ×2 (06:53→14:06)
[2016-11-15 07:34] LABS: MCH 26.8 pg (25.7-33.7); MCHC 33.5 g/dl (32.0-35.9); MEAN CELL VOLUME 79.8 fl (80-96); MEAN PLT VOLUME 6.6 fl (7.5-11.1); PLATELET COUNT 396 K/MM3 (134-434); RDW 20.3 % (11.9-15.9); WHITE BLOOD COUNT 6.3 K/mm3 (4.0-10.0)
[2016-11-15 08:40] LABS: ANION GAP 11 (8-16); CALCIUM 8.5 mg/dL (8.5-10.1); CO2 26 mmol/L (21-32); CREATININE 0.6 mg/dL (0.7-1.3); GLUCOSE,RANDOM 87 mg/dL (74-106); MAGNESIUM 2.4 mg/dL (1.8-2.4); PHOSPHOROUS 2.9 mg/dL (2.5-4.9)
[2016-11-15 09:23] VITALS: BP 106/62; PULSE 85; TEMP 98.8
[2016-11-15] MEDS ORDERED: PT OWN MED DRAWER 7, Y5N ONE (10:18)
[2016-11-15] MEDS ORDERED: DEXTROSE 5%-WATER 100 ML IVPB ONE (10:19)
[2016-11-15] MEDS ORDERED: PIPERACILLIN/TAZOBACTAM 4.5 GM VIAL IVPB ONE (10:19)
[2016-11-15] MEDS: EMTRICITABINE 200MG/TENOFOVIR 300MG PO SCH (10:27)
[2016-11-15] MEDS: DARUNAVIR ETHANOLATE 800 MG TAB PO SCH (10:28)
[2016-11-15] MEDS: RITONAVIR 100 MG TABLET PO SCH (10:28)
[2016-11-15] MEDS: SODIUM CHLORIDE 1,000 ML IV SCH (10:29)
[2016-11-15] MEDS ORDERED: diphenhydrAMINE HCL 25 MG CAPSULE (FP) PO ONE (11:13)
--- NOTE | 2016-11-15 12:22 | PN ---
Progress Note (short form) - Note Progress Note: ID consult dictated leg pain and fevers resolved c/o itchy burning skin and rash since yesterday receiving benadryl Vital Signs Period Temp Pulse Resp BP Sys/Richter Pulse Ox Last 24 Hr 98.4 F-98.8 F 81-85 16-18 83-139/43-75 100 cor-rrr lungs clear abd soft,nt ext no pain on palpation of legs, radiation and KS changes, no warmth skin-fine maculopapular rash on back and abdomen CBC, BMP 11/15/16 06:50 11/15/16 06:50 Microbiology 11/13/16 03:20 Urine - Urine Clean Catch Urine Culture - Final NO GROWTH OBTAINED blood cultures are negative a/p cellulitis- resolving, afebrile, cultures are negative much improved pain and warmth of legs suggest change to clindamycin- add probiotics -he is allergic to bactrim as well suspect DRUG RASH- most likely culprit is zosyn (beta lactam)- will d/c continue benadryl prn hiv- continue truvada/norvir/prezista, f/u with Dr Tobias at [facility] history of [place] history of syphilis- check RPR- f/u with Dr Tobias at [facility] Problem List - Problems (1) Sepsis Code(s): A41.9 - SEPSIS, UNSPECIFIED ORGANISM Qualifiers: Sepsis type: sepsis due to unspecified organism Qualified Code(s): A41.9 - Sepsis, unspecified organism (2) Cellulitis Code(s): L03.90 - CELLULITIS, UNSPECIFIED Qualifiers: Site of cellulitis: extremity Site of cellulitis of extremity: lower extremity Laterality: unspecified laterality Qualified Code(s): L03.119 - Cellulitis of unspecified part of limb (3) HIV (human immunodeficiency virus infection) Code(s): B20 - HUMAN IMMUNODEFICIENCY VIRUS [HIV] DISEASE (4) Kaposi sarcoma Code(s): C46.9 - KAPOSI'S SARCOMA, UNSPECIFIED
[2016-11-15] MEDS ORDERED: LACTOBACILLUS ACIDOPHILUS 1 EACH TAB (FP) PO SCH (12:45)
[2016-11-15] MEDS ORDERED: CLINDAMYCIN HCL 150 MG CAPSULE (FP) PO SCH (14:00)
--- NOTE | 2016-11-15 14:25 | PN ---
Teaching Attending Note Name of Resident: Fausto Suresh ATTENDING PHYSICIAN STATEMENT I saw and evaluated the patient. I reviewed the resident's note and discussed the case with the resident. I agree with the resident's findings and plan as documented. SUBJECTIVE: no fever or chills. feels better , no pain in LE OBJECTIVE: NAD CV : RRR, 3/6 SM at base Lungs : CTAB Ext : no edema. no TTP over legs today . no knee effusion, no erythema ,NL warmth of skin Abd ; soft, NT, ND , NL BS. Skin: black , thick, raised areas on lateral legs and R inner thigh. 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 blood cx ngtd 2- Kappozi's sarcoma: f/u as out pt 3- HIV: cont meds DC home today
--- NOTE | 2016-11-15 19:57 | DS ---
Physical Exam: SUBJECTIVE: Patient seen and examined. Says he feels much better today without any pain and is able to walk without any issues. Denies pain, headache, dizziness, SOB, and chills. OBJECTIVE: Vital Signs Period Temp Pulse Resp BP Sys/Richter Pulse Ox Last 24 Hr 98.4 F-98.8 F 82-85 16-18 101-106/62-75 99-100 PHYSICAL EXAM GENERAL: The patient is awake, alert, and fully oriented, in no acute distress. HEAD: Normal with no signs of trauma. EYES: PERRL, extraocular movements intact, sclera anicteric. ENT: oropharynx clear without exudates, moist mucous membranes. NECK:supple. LUNGS: Breath sounds equal, clear to auscultation bilaterally, no wheezes, no crackles, no accessory muscle use. HEART: Regular rate and rhythm, S1, S2 without murmur, rub or gallop. ABDOMEN: Soft, nontender, nondistended, normoactive bowel sounds, no guarding, no rebound, no hepatosplenomegaly, no masses. EXTREMITIES: Nontender B/L shins. Scattered Discolored plaques B/L on thighs and shins with warmth. Non-erythematous. No edema. NEUROLOGICAL: Cranial nerves II through XII grossly intact. Normal speech, gait not observed. PSYCH: Normal mood, normal affect. LABS Laboratory Results - last 24 hr 11/14/16 11/15/16 11/15/16 00:45 06:50 06:50 WBC 6.3 D RBC 4.41 Hgb 11.8 D Hct 35.2 L MCV 79.8 L MCH 26.8 MCHC 33.5 RDW 20.3 H Plt Count 396 D MPV 6.6 L Sodium Potassium Chloride Carbon Dioxide Anion Gap BUN Creatinine Random Glucose Calcium Phosphorus Magnesium Vancomycin Pre-Dose 1.090 L* MDMA (Ecstasy) Screen Negative 11/15/16 06:50 WBC RBC Hgb Hct MCV MCH MCHC RDW Plt Count MPV Sodium 138 Potassium 4.2 D Chloride 101 Carbon Dioxide 26 Anion Gap 11 BUN 3 L D Creatinine 0.6 L D Random Glucose 87 D Calcium 8.5 Phosphorus 2.9 Magnesium 2.4 Vancomycin Pre-Dose MDMA (Ecstasy) Screen HOSPITAL COURSE: Date of Admission:11/13/16 Patient is a 31 yo M h/o HIV and Kaposi Sarcoma who presented with fever and pain in B/L LE , was found to have cellulitis of LE. Upon admission the patients lactic acid level was 3 and trended down with treatment. Patient was being managed and treated with IV antibiotics (Zosyn, Vanco, Ceftriaxone) for 3 days. He was also followed and managed by the ID team. The cellulitis was resolved and the patient's pain subsided. He was discharged on oral antibiotics (Clindamycin) for 7 more days and Bacid. He was instructed to continue his home medications as directed and follow up with his PCP 1 week after discharge. Date of Discharge: 11/15/16 Minutes to complete discharge: 40 Discharge Summary Reason For Visit: CELLULITIS Current Active Problems Cellulitis (Acute) HIV (human immunodeficiency virus infection) (Chronic) Kaposi sarcoma (Chronic) Condition: Improved - Instructions Diet, Activity, Other Instructions: you had cellulitis of your legs continue the antibiotics by mouth for 7 more days continue the bacid as it will help prevent infection and diarrhea from the antibiotics. continue your home medications which are the antivirals practice safe sex practices such as monogamy and please use a condom when having sex with multiple partners continue to follow up with your doctors who you see for your HIV f/u with Dr Brito at [facility] to check for syphllis and medication management for the kaposi's sarcoma continue to follow up with your oncologist take antibiotics to completion it was a pleasure taking care of you In case you want a new primary care doctor you can see Dr. Lopez i gave you a referral or else follow up with your primary care doctor in 1 week. Referrals: Dimitri Lopez MD [Staff Physician] - 1 Week Luly Wynne MD [Staff Physician] - Disposition: HOME - Home Medications Comprehensive Discharge Medication List: Ambulatory Orders Norvir 100 mg PO DAILY 08/03/16 Prezista - 800 mg PO DAILY 08/03/16 Truvada - 200 mg PO DAILY 08/03/16 Clindamycin HCl 300 mg PO TID #21 capsule 11/15/16 Lactobacillus Acidophilus [Bacid -] 1 tab PO BID #14 tab 11/15/16 This patient is new to me today: No Emergency Visit: No Critical Care patient: No - Discharge Referral Referred to [facility] No
== END 2016-11-15 15:33 | disposition home or self-care (01) | DRG 892 ==
LOC: JER 21:01 → JERBED 11-13 02:30 → UNDOADMIN 11-13 02:35 → JERBED 11-13 02:35 → J5S 11-13 04:28
PROVIDERS: ADMIT Internal Medicine; ATTEND Internal Medicine
DX: A41.9 Sepsis, unspecified organism (principal); R65.20 Severe sepsis without septic shock; L03.115 Cellulitis of right lower limb; L03.116 Cellulitis of left lower limb; B20 Human immunodeficiency virus [HIV] disease; Z85.9 Personal history of malignant neoplasm, unspecified; F17.210 Nicotine dependence, cigarettes, uncomplicated; F12.10 Cannabis abuse, uncomplicated; D64.9 Anemia, unspecified; R21 Rash and other nonspecific skin eruption
CPT/HCPCS: 36415; 71020-TC; 72193-TC; 73562-TC-LT; 73562-TC-RT; 73701-TC-RT; 80048; 80053; 80307; 81003; 83605; 83735; 84100; 85025; 85027; 87086; 90688; 97116-GP; 97161-GP; 99283-25; G0008; G0480; J1644